=== PATIENT | female | born 1995 | race Caucasian/White ===

== ENCOUNTER 2023-01-31 18:22 | Emergency (ER) | payer BC ==
--- OUTSIDE RECORDS SUMMARY | 2023-01-31 18:25 | XMS REPORT | Continuity of Care Document ---
:1995 Author Organization [facility] t Address [address] [facility] [address] [place] [address] Care Team Providers Name Role Phone Pcp, Patient Does Not Have A Primary Care Physician [id number] YAIMA PRUITT Attending Clinician Unavailable Yaima Pruitt MD Attending Clinician Payers Payer Name Policy Type Policy Number Effective Date Expiration Date S kay [facility] BCBS OF [id number] 2022 00:00:00 [place] Problems This patient has no known problems. Allergies, Adverse Reactions, Alerts Allergy Allergy Status Severity Reaction(s) Onset Inactive Treating Comm ents Source Name Type Date Date Clinician NO KNOWN Drug Active Univers ALLERGIE Class ity of S [facility] Social History Social Habit Start Date Stop Date Quantity Comments Source Exposure to 2023-01-21 2023-01-31 Not sure [facility]-CoV-2 00:00:00 08:47:00 [facility] (event) Duck Tobacco use and 2023-01-31 2023-01-31 Smokeless tobacco Un iversity of exposure 00:00:00 00:00:00 non-user [facility] Alcohol intake 2023-01-31 2023-01-31 Current drinker of Un iversity of 00:00:00 00:00:00 alcohol (finding) [facility] Alcohol Comment 2023-01-31 2023-01-31 occasionally Univers ity of 00:00:00 00:00:00 [facility] Sex Assigned At [birth year] Universit y of 00:00:00 00:00:00 [facility] Smoking Status Start Date Stop Date Source Never smoked tobacco [facility] Medications This patient has no known medications. Vital Signs Vital Name Observation Time Observation Value Comments Source Systolic blood 2023-01-31 13:55:00 117 mm[Hg] Univer sity of pressure [facility] Diastolic blood 2023-01-31 13:55:00 79 mm[Hg] [facility] 2023-01-31 13:55:00 73 /min [facility] Body temperature 2023-01-31 13:55:00 36.67 [facility] 2023-01-31 13:55:00 16 /min [facility] Body height 2023-01-31 13:55:00 162.6 cm [facility] Body weight 2023-01-31 13:55:00 67.132 kg [facility] BMI 2023-01-31 13:55:00 25.40 kg/m2 [facility] Procedures This patient has no known procedures. Encounters Start End Encounter Admission Attending Care Care Encounter Source Date/Time Date/Time Type Type Clinicians Facility Department ID 2023-05-02 2023-05-[address] [facility] [id number] [facility] 09:30:00 09:30:00 YAIMA ropershu [facility] 2023-01-31 2023-01-[address] [facility] [id number] [facility] 09:00:00 09:26:11 YAIMA melgar [facility] 2023-01-31 2023-01-31 Office [facility] [id number] [facility] 09:00:00 09:26:11 Visit Yaima OWEN 350.1.13.10 i ty of WOMEN[facility]S 4.2.7.2.686 [facility] [id number] [address] Results This patient has no known results.
--- NOTE | 2023-01-31 19:09 | RAD REPORT ---
EXAM DESCRIPTION: Abhinav Single View01/31/2023 6:49 pm CLINICAL HISTORY: cough COMPARISON: none FINDINGS: The lungs appear clear of acute infiltrate. The heart is normal size IMPRESSION: No acute abnormalities displayed
[2023-01-31 19:38] LABS: Absolute Lymphocytes (CBC) 2.7 K/uL (0.7-4.9); Hematocrit 41.6 % (36.0-45.0); Lymphocytes % 27.5 % (15.3-44.8); MCV 90.4 fL (80-100); MPV 7.6 fL (7.6-11.3)
[2023-01-31 20:01] LABS: BUN Blood Urea Nitrogen 14 mg/dL (7-18); Bicarbonate 27 mEq/L (21-32); Glomerular Filtration Rate 99 ml/min (=/>90); Glucose Level 93 mg/dL (74-106); Potassium 3.7 mEq/L (3.5-5.1); Sodium Level 135 mEq/L (136-145)
--- NOTE | 2023-01-31 20:05 | ER ---
Nurse's Notes [facility] Name: Haven Velázquez Age: 27 yrs Sex: Female : 1995 Arrival Date: 01/31/2023 Time: 18:22 Bed 12 Private MD: Diagnosis: Cough Presentation: 01/31 18:24 Chief complaint: Patient states: cough x 5 weeks ago with chest pain for approximately aa5 1 week. Pt reports chest pain with movement and inspiration. Coronavirus screen: cough unrelated to allergies. Ebola Screen: Patient denies travel to an Ebola-affected area in the 21 days before illness onset. Initial Sepsis Screen: Does the patient meet any 2 criteria? No. Patient's initial sepsis screen is negative. Does the patient have a suspected source of infection? No. Patient's initial sepsis screen is negative. Risk Assessment: Do you want to hurt yourself or someone else? Patient reports no desire to harm self or others. Onset of symptoms was December 2022. 18:24 Acuity: LUPE 3 aa5 18:24 Method Of Arrival: Ambulatory aa5 Triage Assessment: 20:18 General: Appears in no apparent distress. Behavior is calm, cooperative. Pain: kl Complains of pain in head. Cardiovascular: No deficits noted. 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 - Social history:: Smoking status: Patient denies any tobacco usage or history of. Screenin:18 [facility] ED Fall Risk Assessment (Adult) History of falling in the last 3 months, kl including since admission Yes- single mechanical fall (1 pt) Confusion or Disorientation No (0 pts) Intoxicated or Sedated No (0 pts) Impaired Gait No (0 pts) Mobility Assist Device Used No (0 pt) Altered Elimination No (0 pt) Score/Fall Risk Level 0 - 2 = Low Risk Oriented to surroundings, Maintained a safe environment. Abuse screen: Denies threats or abuse. Nutritional screening: No deficits noted. Tuberculosis screening: No symptoms or risk factors identified. Assessment: 20:17 Reassessment: Patient appears in no apparent distress at this time. Neuro: No deficits kl noted. Level of Consciousness is awake, alert, obeys commands, Oriented to person, place, time, situation, Moves all extremities. Full function Gait is steady, Speech is normal, Facial symmetry appears normal. Vital Signs: 18:24 BP 106 / 77; Pulse 79; Resp 16 S; Temp 98.2(O); Pulse Ox 100% on R/A; aa5 ED Course: 18:23 Patient arrived in ED. 4 18:23 Shanti Park is Attending Physician. sk4 18:24 Arm band placed on. aa5 18:25 Triage completed. aa5 18:51 XRAY Chest (1 view) In Process Unspecified. EDMS 19:30 Basic Metabolic Panel Sent. bc6 19:30 CBC with Diff Sent. bc6 19:30 D-Dimer Sent. bc6 19:30 Troponin HS Sent. 6 19:30 Initial lab(s) drawn, by me, sent to lab. EKG done, by ED staff, reviewed by Shanti Park. Inserted saline lock: 20 gauge in right antecubital area, using aseptic technique. 20:18 Patient has correct armband on for positive identification. kl 20:19 No provider procedures requiring assistance completed. IV discontinued, intact, kl bleeding controlled, No redness/swelling at site. Pressure dressing applied. Administered Medications: No medications were administered Medication: 20:18 VIS not applicable for this client. kl Outcome: 20:04 Discharge ordered by . [facility] 20:18 Discharged to home ambulatory. kl 20:18 Condition: stable 20:18 Discharge instructions given to patient, Instructed on discharge instructions, follow up and referral plans. Demonstrated understanding of instructions, follow-up care. 20:19 Patient left the ED. kl Signatures: Dispatcher [employer] Joanne Velasquez RN RN Pretty Araujo RN RN Sahnti [facility] Ramya Bowie [facility]
--- NOTE | 2023-01-31 20:06 | EDPHYS ---
Physician Documentation [facility] Name: Haven Velázquez Age: 27 yrs Sex: Female : 1995 Arrival Date: 01/31/2023 Time: 18:22 Bed 12 Private MD: ED Physician Shanti Park HPI: 01/31 18:47 This 27 yrs old Female presents to ER via Ambulatory with complaints of Chest Pain, sk4 Cough. 18:47 cough x 4-5 weeks. pain in right ribs worse over past one week. cough mostly dry but sk4 occ mucous. no leg pain/swelling. no fever. no recent immob. no ocp use. no tobacco. no lifting/trauma. has had fractured ribs before, thinks scar tissue flared up from so much coughing. pain worse with deep breath/cough.. 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 - Social history:: Smoking status: Patient denies any tobacco usage or history of. ROS: 18:47 Respiratory: Positive for cough. sk4 20:05 Constitutional: Negative for fever, chills, and weight loss. sk4 Exam: 18:47 Constitutional: This is a well developed, well nourished patient who is awake, alert, sk4 and in no acute distress. Chest/axilla: Normal chest wall appearance and motion. Nontender with no deformity. No lesions are appreciated. Cardiovascular: Regular rate and rhythm with a normal S1 and S2. No gallops, murmurs, or rubs. Normal PMI, no JVD. No pulse deficits. Respiratory: Lungs have equal breath sounds bilaterally, clear to auscultation and percussion. Abdomen/GI: Soft, non-tendert. Skin: Warm, dry with normal turgor. 20:02 ECG was reviewed by the Attending Physician. NSR, no ST/T changes sk4 20:15 Chest/axilla: Normal chest wall appearance and motion. Nontender with no deformity. sk4 No lesions are appreciated. Cardiovascular: No pulse deficits. regular rate. Respiratory: No distress. Equal chest rise. Back: No spinal tenderness. No costovertebral tenderness. Full range of motion. Skin: Warm, dry with normal turgor. Normal color with no rashes, no lesions, and no evidence of cellulitis. MS/ Extremity: no calf tenderness. full rom. no swelling. Neuro: Awake and alert, GCS 15, oriented to person, place, time, and situation. Vital Signs: 18:24 BP 106 / 77; Pulse 79; Resp 16 S; Temp 98.2(O); Pulse Ox 100% on R/A; aa5 MDM: 18:47 Differential diagnosis: abnormal EKG, costochondritis, pleurisy, pneumonia, sk4 pneumothorax, pulmonary embolus. Data reviewed: vital signs, nurses notes, lab test result(s), EKG, radiologic studies. 20:02 Independent interpretation of the following test(s) in the Emergency Department EKG: [facility] See my EKG interpretation above. ED course: EKG, XR, lab noted. resting comfortably. given duration of cough will rx antibiotics and cough medication. AFVSS. Understands need to followup and potential for other acute undiagnosed condtiion still exists despite wokrup in the ED. Further tests may be necessary. . 20:04 Patient medically screened. [facility] 20:15 Refusal of service: The patient/guardian displays adequate decision making capability [facility] and despite a detailed discussion of alternatives, benefits, risks, and consequences refuses: additional lab tests. ekg normal. xray normal. ddimer neg. these were pt's biggest concerns. young, no cardiac risk factors, want sto leave. understands acute pathology may yet exist and inability to diagnose without labs . 01/31 18:24 Order name: Basic Metabolic Panel [facility] 01/31 18:24 Order name: CBC with Diff; Complete Time: 19:[address] [facility] 01/31 18:24 Order name: D-Dimer; Complete Time: 19:[address] [facility] 01/31 18:24 Order name: Troponin HS [facility] 01/31 18:24 Order name: HCG-Quantitative [facility] 01/31 18:24 Order name: XRAY Chest (1 view); Complete Time: 19:[address] [facility] 01/31 18:24 Order name: EKG; Complete Time: 18:[address] [facility] 01/31 18:24 Order name: Cardiac monitoring; Complete Time: 19:[address] [facility] 01/31 18:24 Order name: EKG - Nurse/Tech; Complete Time: 19:30 sk4 01/31 18:24 Order name: IV Saline Lock; Complete Time: 19:30 sk4 01/31 18:24 Order name: Labs collected and sent; Complete Time: 19:30 sk4 Administered Medications: No medications were administered Disposition Summary: 01/31/23 20:04 Discharge Ordered Location: Home sk4 Problem: new sk4 Symptoms: are unchanged sk4 Condition: Stable sk4 Diagnosis - Cough sk4 Discharge Instructions: - Discharge Summary Sheet sk4 - Cough, Adult sk4 Forms: - Medication Reconciliation Form sk4 - Thank You Letter sk4 - Antibiotic Education sk4 - Prescription Opioid Use sk4 Prescriptions: - Tessalon Perles 100 mg Oral Capsule - take 1 capsule by ORAL route every 8 hours As needed; 15 capsule; Refills: 0, sk4 Product Selection Permitted - Zithromax Z-Sumit 250 mg Oral Tablet - take 1 tablet by ORAL route as directed for 5 days Day 1 - take two (2) tablets sk4 one time. Day 2, 3, 4 , 5 take one (1) tablet once daily.; 6 tablet; Refills: 0, Product Selection Permitted Signatures: Dispatcher [employer] Joanne Velasquez RN RN Pretty Araujo RN RN aa5 Shanti Park 4
[2023-01-31 20:19] LABS: HCG, Quantitative < 1 mIU/mL (1-3); Troponin High Sensitivity < 3.0 pg/mL (<58.9)
[2023-01-31 20:44] VITALS: BP 106/77; TEMP 98.2; O2SAT 100
== END 2023-01-31 20:19 | disposition home or self-care (01) ==
LOC: ER 18:22
DX: R05.9 Cough, unspecified (principal); R07.9 Chest pain, unspecified
CPT/HCPCS: 36415; 71045; 80048; 84484; 84702; 85025; 85379; 99284

== ENCOUNTER → 2023-11-24 | Emergency (ER) | payer BC, OTHER ==
[~2023-11-24] MED LIST: HYDROCODONE/APAP 10/325 TAB ONE; dexAMETHasone 10 MG/ML VIAL ONE
--- OUTSIDE RECORDS SUMMARY | 2023-11-24 15:03 | XMS REPORT | Continuity of Care Document ---
Author Name Unknown Address [address] [facility] [address] [place] [address] [facility] thconnect Address [address] [facility] [place] [address] Care Team Providers Care Manager Scientific Name Role Phone Pcp, Patient Does Not Have A Primary Care Physic ángela YAIMA PRUITT Attending Clinician Unavailable Doctor Unassigned, [place] Attending Clinician U Yaima Alexander MD Attending Clinician [phone] Payers Payer Name Policy Type Policy Number Effective Date Expirati on Date Source [facility] [id number] 2022 00:00:00 Allergies, Adverse Reactions, Alerts Allergy Name Allergy Type Status Severity Reaction(s) Onset Date Inactive Date Treating Clinician Comments Source NO KNOWN ALLERGIE S Drug Class Active [facility] Social History Social Habit Start Date Stop Date Quantity Comments Source Gender identity [facility] Sexual orientation [facility] Alcohol intake 2023-05-02 00:00:00 2023-05-02 00:00:00 Current drinker of alcohol (finding) [facility] History of Social function 2023-05-02 00:00:00 2023-05-02 00:00:00 [facility] Exposure to SARS-CoV-2 (event) 2023-01-21 00:00:00 2023-01-31 08:47:00 Not sure [facility] Tobacco use and exposure 2023-01-31 00:00:00 2023-01-31 00:00:00 Smokeless tobacco non-user [facility] Alcohol Comment 2023-01-31 00:00:00 2023-01-31 00:00:00 occasionally [facility] Sex Assigned At 1995 00:00:00 1995 00:00:00 [facility] Smoking Status Start Date Stop Date Source Never smoked tobacco [facility] Medications Ordered Medication Name Filled Medication Name Start Date Stop Date Current Medication? Ordering Clinician Indication Dosage Frequency Signature (SIG) Comments Components Source metroNIDAZO LE (FLAGYL) 500 mg tablet 2022-0 8-04 00:00: 00 Yes [id number] 500mg Take 1 tablet by mouth every 12 (twelve) hours. [facility] metroNIDAZO LE (FLAGYL) 500 mg tablet 2022-0 8-04 00:00: 00 Yes [id number] 500mg Take 1 tablet by mouth every 12 (twelve) hours. [facility] metroNIDAZO LE (FLAGYL) 500 mg tablet 2022-0 8-04 00:00: 00 Yes [id number] 500mg Take 1 tablet by mouth every 12 (twelve) hours. [facility] metroNIDAZO LE (FLAGYL) 500 mg tablet 2022-0 8-04 00:00: 00 Yes [id number] 500mg Take 1 tablet by mouth every 12 (twelve) hours. [facility] metroNIDAZO LE (FLAGYL) 500 mg tablet 2022-0 8-04 00:00: 00 Yes [id number] 500mg Take 1 tablet by mouth every 12 (twelve) hours. [facility] metroNIDAZO LE (FLAGYL) 500 mg tablet 2022-0 8-04 00:00: 00 Yes [id number] 500mg Take 1 tablet by mouth every 12 (twelve) hours. [facility] Vital Signs Vital Name Observation Time Observation Value Comments Rosanne villanueva Systolic blood pressure 2023-05-02 14:44:00 115 mm[Hg] [facility] Diastolic blood pressure 2023-05-02 14:44:00 77 mm[Hg] [facility] Heart rate 2023-05-02 14:44:00 76 /min [facility] Body temperature 2023-05-02 14:44:00 36.67 Linda [facility] Respiratory rate 2023-05-02 14:44:00 18 /min [facility] Body height 2023-05-02 14:44:00 162.6 cm [facility] Body weight 2023-05-02 14:44:00 71.759 kg [facility] BMI 2023-05-02 14:44:00 27.15 kg/m2 [facility] Systolic blood pressure 2023-01-31 13:55:00 117 mm[Hg] [facility] Diastolic blood pressure 2023-01-31 13:55:00 79 mm[Hg] [facility] Heart rate 2023-01-31 13:55:00 73 /min [facility] Body temperature 2023-01-31 13:55:00 36.67 Linda [facility] Respiratory rate 2023-01-31 13:55:00 16 /min [facility] Body height 2023-01-31 13:55:00 162.6 cm [facility] Body weight 2023-01-31 13:55:00 67.132 kg [facility] BMI 2023-01-31 13:55:00 25.40 kg/m2 [facility] Procedures Procedure Date / Time Performed Performing Clinician Source EXTERNAL PROVIDER RECORDS 2023-05-24 05:01:00 Doctor Unassigned, [place] [facility] GALV ONLY - VAGINAL PATHOGENS BY NUCLEIC ACID TESTING 2023-05-02 16:03:00 Yaima Pruitt [facility] GC & CHLAMYDIA AMPLIFIED ASSAY 2023-05-02 16:01:00 Yaima Pruitt [facility] TRICHOMONAS AMPLIFIED ASSAY 2023-05-02 16:01:00 Yaima Pruitt [facility] PAP SMEAR-LIQUID BASED-CP 2023-05-02 16:01:00 Yaima Pruitt [facility] Encounters Start Date/Time End Date/Time Encounter Type Admission Type Attending Clinicians Care Facility Care Department Encounter ID Source 2024-05-07 09:30:00 2024-05-07 09:30:00 [id number] 2023-05-24 00:00:00 2023-05-24 00:00:00 Orders Only Doctor Unassigned, [place] [facility] [id number] [id number] [id number] [facility] 2023-05-09 00:00:00 2023-05-09 00:00:00 Telephone AdumYaima [facility] [id number] 350.1.13.10 [id number] [id number] [facility] 2023-05-02 09:30:00 2023-05-02 10:16:46 Office Visit A[facility] [id number] 350.1.13.10 4.2.7.2.686 [id number] [facility] 2023-05-02 09:30:00 2023-05-02 10:16:46 Outpatient R [facility] [id number] [facility] 2023-01-31 09:00:00 2023-01-31 09:26:11 Office Visit [facility]on [facility] [id number] 350.1.13.10 4.2.7.2.686 [id number] [facility] 2023-01-31 09:00:00 2023-01-31 09:26:11 Outpatient R [facility] [id number] [facility] Notes Date/Time Note Provider Source 2023-05-23 08:30:13 ojDawpZGgyRmIiGMa6Kx ctFaSIwstBvFT 0ZLHEu1Fvx4brYLf/x5psoQ+lBhwE2l96 23-05-23T08:30:13 Pt will call back to schedule appointment. 90806-1Nwgzczmjc encounter PlcoGS5921-66-05D37:30:23Telephon e encounter NoteTXT1.2.840.754961.1.13.104.2. 7.2.263646|[id number] for patient [id number] D [address] 416WEHKPGKXRPFVJIBENCGZVO7038-96- 23T08:30:231.2.840.347997.1.72.3. 15|1.2.840.910598.1.13.104.2.7.2. [id number] [facility] 2023-05-22 11:27:48 ET80Fd54cT/uX4Z8vX1E b34uh4J0TDXIj qTFIT1sLP08RoOy2194WK4SQwQDFVNL11 23-05-22T11:27:48 Called pt no answer left voicemail. 56572-1Vqcdthott encounter QudiQK4954-13-23T78:00:55Telephon e encounter NoteTXT1.2.840.024099.1.13.104.2. 7.2.538511|[id number] for patient oivl40611-1OatfTS592120040Zzksasd D [address] 421HASWXOMWGMVYBUAHXSSHSP4057-20- 23T08:00:551.2.840.084938.1.72.3. 15|1.2.840.365000.1.13.104.2.7.2. [id number] Aylin [facility] 2023-05-19 19:04:51 P+iCqnQJmC/xz416FHjp ERyxSpaJNvPy6 majjcAMmrTBpcuv4gKL7/o6myizxaJf24 23-05-199:04:51 Please notify that records show that her IUD was placed in 10/08/2017, so she may schedule an appointment for removal and reinsertion of her Mirena IUD. Please assist [place] [address]-6Ajojmddyy encounter AibbOA4320-76-21I34:07:02Telephon e encounter NoteTXT1.2.840.238787.1.13.104.2. 7.2.662880|[id number] for patient uoww99701-6XggsLUMJDPAMEN[address] 442KJUGUYHGTZXSFLJRLQHIQV4727-68- 19T19:07:021.2.840.106869.1.72.3. 15|1.2.840.430511.1.13.104.2.7.2. [id number] [facility] 2023-05-09 14:40:02 bGSDVJGKbbz/azhp9oFA rKGIpKscl1nSq wrjY3wyYoj+Vl1MtzfARn3nZ6WY114/20 23-05-094:40:02 Medical records received from [place] placed on provider desk for review and signature. 31589-6Sknpxqadt encounter RnvlLV3058-64-13A63:41:03Telephon e encounter NoteTXT1.2.840.603127.1.13.104.2. 7.2.106653|[id number] for patient [id number] D [address] 854NPLXXNCEJXSQCLRDPTDKPF4794-09- 09T14:41:031.2.840.195903.1.72.3. 15|1.2.840.769552.1.13.104.2.7.2. [id number] [facility] [facility] 2023-05-02 09:30:00 +fQZs8qAb8YfXuTkYH63 ljAFTRxbRmq8q MrsVOnBlObvHayBAFt8S0HTzUHoHuGh11 23-05-02T09:30:00 Vaginal swab shows a bacterial vaginosis infection. Antibiotic therapy needed, pelase send flagyl 500 mg BID for 5 days.Vaginal testing for sexually transmitted infections was negative. 33912-4Merumkqs ekuyPU6642-36-87E81:09:19Progress noteTXT1.2.840.489552.1.13.104.2. 7.2.800076|[id number] for patient izsn08894-0BfuuNQFMIUFPTT[address] 656LWPWGPGMOPOSVCTCDEADVL2359-15- 04T08:09:191.2.840.469589.1.72.3. 15|1.2.840.407215.1.13.104.2.7.2. [id number] [facility] 2023-05-02 09:30:00 1Hl4HWnNyx6Eyhi8g1/N R3w9bWQWYmR65 xSF3O+T58KjzaD4aRHDkyA46O+rzg/I20 23-05-02T09:30:00 Addended by: ANGELIA MATHUR on: 05/04/2023 09:21 AM Modules accepted: Orders 48699-4Kazxqqcy JflvdrceAO1648-41-56M84:21:29Adde ndum DocumentTXT1.2.840.428381.1.13.10 4.2.7.2.392257|[id number] [facility] tcsn81442-0JlacGCCITSYCTU[address] HrdgYqebvafyrIlknfrnseWBST4704613 343JFFCSPYTBHTFYMQYYIVTBI6777-26- 04T09:21:291.2.840.149528.1.72.3. 15|1.2.840.983920.1.13.104.2.7.2. [id number] [facility]"
--- NOTE | 2023-11-24 16:34 | RAD REPORT ---
EXAM DESCRIPTION: RAD - Lumbar Spine 3 Views - 11/24/2023 3:33 pm CLINICAL HISTORY: PAIN COMPARISON: No comparisons TECHNIQUE: Lumbar spine, 3 views. FINDINGS: Lumbar vertebral bodies are normal in height and alignment. No fracture or acute bony proc ess seen. No disc space narrowing. No other significant findings. IUD in place. IMPRESSION: Negative Lumbar Spine examination.
--- NOTE | 2023-11-24 16:40 | EDPHYS ---
Physician Documentation [facility] Name: Haven Velázquez Age: 28 yrs Sex: Female : 1995 Arrival Date: 11/24/2023 Time: 15:01 Bed 13 Private MD: ED Physician Richard Rojas HPI: 11/24 15:13 This 28 yrs old Female presents to ER via Ambulatory with complaints of Back Pain. jh7 15:13 The patient presents with pain that is chronic, with no known mechanism of injury. The jh7 symptoms are located in the low back. Onset: The symptoms/episode began/occurred 2 month(s) ago. The pain does not radiate. Associated signs and symptoms: The patient has no apparent associated signs or symptoms. 28-year-old female presents to the ER complaining of lower back pain for the past 2 months. The patient states that she injured her back 2 months ago when attempting to break a fall, but has not had any imaging done yet. Reports that she has had 2 Toradol injections within the past 2 days with no relief. No other symptoms at this time.. Historical: - Allergies: 15:13 No Known Allergies; cm10 - PMHx: 15:13 None; cm10 - Immunization history:: Adult Immunizations up to date. - Social history:: Smoking status: Patient denies any tobacco usage or history of. ROS: 15:13 Constitutional: Negative for fever, chills, and weight loss, Eyes: Negative for injury, jh7 pain, redness, and discharge, Neck: Negative for injury, pain, and swelling, Cardiovascular: Negative for chest pain, palpitations, and edema, Respiratory: Negative for shortness of breath, cough, wheezing, and pleuritic chest pain, Abdomen/GI: Negative for abdominal pain, nausea, vomiting, diarrhea, and constipation, MS/Extremity: Negative for injury and deformity, Skin: Negative for injury, rash, and discoloration, Neuro: Negative for headache, weakness, numbness, tingling, and seizure, 15:13 Back: Positive for pain with movement, 15:13 All other systems are negative, Exam: 15:13 Constitutional: This is a well developed, well nourished patient who is awake, alert, jh7 and in no acute distress. Head/Face: Normocephalic, atraumatic. Neck: Trachea midline, no thyromegaly or masses palpated, and no cervical lymphadenopathy. Supple, full range of motion without nuchal rigidity, or vertebral point tenderness. No Meningismus. Cardiovascular: Regular rate and rhythm with a normal S1 and S2. No gallops, murmurs, or rubs. Normal PMI, no JVD. No pulse deficits. Respiratory: Lungs have equal breath sounds bilaterally, clear to auscultation and percussion. No rales, rhonchi or wheezes noted. No increased work of breathing, no retractions or nasal flaring. Abdomen/GI: Soft, non-tender, with normal bowel sounds. No distension or tympany. No guarding or rebound. No evidence of tenderness throughout. Skin: Warm, dry with normal turgor. Normal color with no rashes, no lesions, and no evidence of cellulitis. MS/ Extremity: Pulses equal, no cyanosis. Neurovascular intact. Full, normal range of motion. Neuro: Awake and alert, GCS 15, oriented to person, place, time, and situation. Cranial nerves II-XII grossly intact. Motor strength 5/5 in all extremities. Sensory grossly intact. Normal gait. 15:13 Back: pain, that is moderate, ROM is painful, with all movement, normal spinal alignment noted, CVA tenderness, is absent, muscle spasm, is not present, Vital Signs: 15:12 BP 117 / 81; Pulse 79; Resp 16; Temp 97.5(TE); Pulse Ox 98% on R/A; Weight 70.31 kg cm10 (R); Height 5 ft. 4 in. ; Pain 5/10; 15:12 Body Mass Index 26.61 (70.31 kg, 162.56 cm) cm10 15:12 Pain Scale: Adult cm10 MDM: 15:09 Patient medically screened. [facility] 16:40 Differential diagnosis: chronic back pain, Ligament Injury Osteoarthritis ruptured [facility] disc, sprain. Data reviewed: vital signs, nurses notes, radiologic studies, plain films. I considered the following discharge prescriptions or medication management in the emergency department Medications were administered in the Emergency Department. See MAR. Independent interpretation of the following test(s) in the Emergency Department X-Ray: My interpretation is no acute findings. Counseling: I had a detailed discussion with the patient and/or guardian regarding the historical points, exam findings, and any diagnostic results supporting the discharge/admit diagnosis, the need for outpatient follow up, a orthopedic surgeon, to return to the emergency department if symptoms worsen or persist or if there are any questions or concerns that arise at home. Response to treatment: the patient's symptoms have mildly improved after treatment. 11/24 15:22 Order name: XRAY Lumbar Spine (3 Views); Complete Time: 16:37 [facility] Administered Medications: 15:56 Drug: [place]ck[place] PO 10 mg-325 mg 1 tabs PO once Route: PO; hb 16:44 Follow up: Response: No adverse reaction; Pain is decreased; RASS: Alert and Calm (0) kc6 15:57 Drug: Dexamethasone IM 10 mg IM once Route: IM; Site: right deltoid; hb 16:43 Follow up: Response: No adverse reaction 6 Disposition: 19:18 Co-signature as Attending Physician, Richard Rojas MD I agree with the assessment and kdr plan of care. Disposition Summary: 11/24/23 16:39 Discharge Ordered Notes: Location: Home [facility] Problem: chronic [facility] Symptoms: are unchanged [facility] Condition: Stable [facility] Diagnosis - Low back pain [facility] Followup: [facility] - With: Private Physician - When: 2 - 3 days - Reason: Recheck today's complaints Discharge Instructions: - Discharge Summary Sheet [facility] - Chronic Back Pain [facility] Forms: - Work release form hb - Medication Reconciliation Form [facility] - Thank You Letter [facility] - Patient Portal Instructions [facility] - Leadership Thank You Letter [facility] Prescriptions: - Naprosyn 500 mg Oral Tablet - take 1 tablet ORAL route 2 times per day take with food; 30 tablet; Refills: 0, [facility] Product Selection Permitted - Zanaflex 4 mg Oral Tablet - take 1 tablet ORAL route every 8 hours As needed; 20 tablet; Refills: 0, [facility] Product Selection Permitted Signatures: Dispatcher [employer] Richard Almonte MD MD [facility] Elizabeth Ambriz RN RN Yin Thomas FNP [place] [id number] Sandra Hunt RN RN cm10 Rosalind Calabrese RN kc6
--- NOTE | 2023-11-24 16:40 | ER ---
Nurse's Notes [facility] Name: Haven Velázquez Age: 28 yrs Sex: Female : 1995 Arrival Date: 11/24/2023 Time: 15:01 Bed 13 Private MD: Diagnosis: Low back pain Presentation: 11/24 15:12 Chief complaint: Patient states: Low back pain X2 months. Pt reports having Toradol cm10 30mg IM the last 2 days with no relief. Coronavirus screen: Vaccine status: Patient reports receiving the 2nd dose of the covid vaccine. Client denies travel out of the [place] in the last 14 days. Ebola Screen: Patient denies travel to an Ebola-affected area in the 21 days before illness onset. No symptoms or risks identified at this time. Initial Sepsis Screen: Does the patient meet any 2 criteria? No. Patient's initial sepsis screen is negative. Does the patient have a suspected source of infection? No. Patient's initial sepsis screen is negative. Risk Assessment: Do you want to hurt yourself or someone else? Patient reports no desire to harm self or others. Onset of symptoms was November 24, 2023. 15:12 Method Of Arrival: Ambulatory cm10 15:12 Acuity: LUPE 4 cm10 Historical: - Allergies: 15:13 No Known Allergies; cm10 - PMHx: 15:13 None; cm10 - Immunization history:: Adult Immunizations up to date. - Social history:: Smoking status: Patient denies any tobacco usage or history of. Screenin:57 [facility] ED Fall Risk Assessment (Adult) Score/Fall Risk Level 0 - 2 = Low Risk hb Oriented to surroundings, Maintained a safe environment, Educated pt \T\ family on fall prevention, incl call for assistance when getting out of bed. Abuse screen: Denies threats or abuse. Denies injuries from another. Nutritional screening: No deficits noted. Tuberculosis screening: No symptoms or risk factors identified. Assessment: 15:57 General: Appears in no apparent distress. Behavior is calm, cooperative. Pain: Pain hb currently is 5 out of 10 on a pain scale. Neuro: Level of Consciousness is awake, alert, obeys commands, Oriented to person, place, time, situation. Cardiovascular: Patient's skin is warm and dry. Respiratory: Respiratory effort is even, unlabored, Respiratory pattern is regular, symmetrical. GI: No signs and/or symptoms were reported involving the gastrointestinal system. : No signs and/or symptoms were reported regarding the genitourinary system. EENT: No signs and/or symptoms were reported regarding the EENT system. Derm: Skin is pink, warm \T\ dry. Musculoskeletal: Reports back pain. 17:01 Reassessment: Patient appears in no apparent distress at this time. Patient and/or hb family updated on plan of care and expected duration. Pain level reassessed. Patient is alert, oriented x 3, equal unlabored respirations, skin warm/dry/pink. Vital Signs: 15:12 BP 117 / 81; Pulse 79; Resp 16; Temp 97.5(TE); Pulse Ox 98% on R/A; Weight 70.31 kg cm10 (R); Height 5 ft. 4 in. ; Pain 5/10; 15:12 Body Mass Index 26.61 (70.31 kg, 162.56 cm) cm10 15:12 Pain Scale: Adult cm10 ED Course: 15:03 Patient arrived in ED. ra3 15:09 Yin Thomas FNP [facility]. jh7 15:09 Richard Rojas MD is Attending Physician. 7 15:13 Triage completed. cm10 15:13 Arm band placed on Patient placed in an exam room, on a stretcher. cm10 15:35 XRAY Lumbar Spine (3 Views) In Process Unspecified. EDMS 15:46 Elizabeth Ambriz, RN is Primary Nurse. hb 15:57 Patient has correct armband on for positive identification. Provided Education on: hb medications. 15:57 No provider procedures requiring assistance completed. Patient did not have IV access hb during this emergency room visit. Administered Medications: 15:56 Drug: [place] PO 10 mg-325 mg 1 tabs PO once Route: PO; hb 16:44 Follow up: Response: No adverse reaction; Pain is decreased; RASS: Alert and Calm (0) kc6 15:57 Drug: Dexamethasone IM 10 mg IM once Route: IM; Site: right deltoid; hb 16:43 Follow up: Response: No adverse reaction kc6 Medication: 15:57 VIS not applicable for this client. hb Outcome: 16:39 Discharge ordered by . [facility] 17:02 Discharged to home ambulatory, with significant other, hb 17:02 Condition: stable 17:02 Discharge instructions given to patient, Instructed on discharge instructions, follow up and referral plans. medication usage, Demonstrated understanding of instructions, follow-up care, medications, Prescriptions given X 2, 17:03 Patient left the ED. Signatures: Dispatcher [employer] EDMS Elizabeth Ambriz RN RN Yin Thomas, SCREWDOWN OPERATOR SCREWDOWN OPERATOR jh7 Rosalind Calabrese RN RN kc6 Sandra Hunt RN RN cm10 Sammi Espinosa 3
[2023-11-24 17:22] VITALS: BP 117/81; TEMP 97.5; O2SAT 98
== END ==
LOC: ER 15:01
DX: M54.50 Low back pain, unspecified (principal)
CPT/HCPCS: 72100; J1100; 96372; 99284

== ENCOUNTER 2024-03-01 18:32 | Emergency (ER) | payer OTHER ==
[2024-03-01] MEDS ORDERED: ONDANSETRON 4 MG/2 ML VIAL ONE (18:59)
[2024-03-01] MEDS ORDERED: dexAMETHasone 10 MG/ML VIAL ONE (19:00)
[2024-03-01] MEDS ORDERED: HYDROCOD 2.5mg-ACETAMIN 108mg/5mL Soln ONE (19:00)
[2024-03-01 19:21] LABS: Absolute Lymphocytes (CBC) 1.3 K/uL (0.7-4.9); Absolute Monocytes 0.7 K/uL (0.1-1.3); Absolute Neutrophil 6.5 K/uL (1.8-8.0); Basophils % 0.2 % (0-1.3); Eosinophils % 0.3 % (0-4.4); Hematocrit 35.8 % (36.0-45.0); Hemoglobin 12.6 g/dL (12.0-15.0); Lymphocytes % 15.3 % (15.3-44.8); MCHC 35.1 g/dL (32.0-36.0); MCV 88.5 fL (80-100); MPV 7.3 fL (7.6-11.3); Monocytes % 8.5 % (3.3-12.3); Neutrophils % 75.7 % (41.7-73.7); Platelets 225 thou/uL (152-406); RBC Red Blood Cell Count 4.05 M/uL (3.86-4.86); Red Cell Distribution Width 12.5 % (12.1-15.2)
[2024-03-01 19:39] LABS: Albumin 2.9 g/dL (3.4-5.0); Albumin/Globulin Ratio 0.7 (1.1-1.8); Anion Gap 7.4 mEq/L (5.0-15.0); Bilirubin Total 0.3 mg/dL (0.2-1.0); Globulin 4.3 g/dL (2.3-3.5); Potassium 3.4 mEq/L (3.5-5.1); Protein, Total 7.2 g/dL (6.4-8.2)
[2024-03-01 20:02] LABS: Monoscreen NEG (NEG)
--- NOTE | 2024-03-01 20:05 | RAD REPORT ---
EXAM DESCRIPTION: CT - Soft Tissue Neck W/Contr CLINICAL HISTORY: dysphagia;Sore throat COMPARISON: No comparisons TECHNIQUE All CT scans are performed using dose optimization technique as appropriate and may includ e automated exposure control or mA/KV adjustment according to patient size. FINDINGS: Tonsillar hypertrophy with striations consistent with phlegmon but no discrete abscess. En hancement of the mucosal pharyngeal surface consistent with pharyngitis. Enlarged cervical chain lymp h nodes bilaterally. For example, there is a right level 2 lymph node which measures 1.7 cm that is a lmost certainly reactive. The airway is widely patent. IMPRESSION: Pharyngitis and bilateral tonsillar phlegmon but no tonsillar or peritonsillar abscess. The airway is patent.
[2024-03-01] MEDS ORDERED: POTASSIUM 25 MEQ EFFERV TAB ONE (20:19)
[2024-03-01] MEDS ORDERED: CEFTRIAXONE 1000 MG/VIAL ONE (20:19)
[2024-03-01] MEDS ORDERED: CLINDAMYCIN 600MG/D5W 50 ML IV ONE (20:20)
--- NOTE | 2024-03-01 20:39 | ER ---
Nurse's Notes [facility] Name: Haven Velázquez Age: 28 yrs Sex: Female : 1995 Arrival Date: 03/01/2024 Time: 18:32 Bed 9 Private MD: Diagnosis: Acute tonsillitis, unspecified Presentation: 03/01 18:37 Chief complaint: EMS states: Patient was seen at urgent care and was placed on cm10 Amoxicillin for possible strep. Pt was swabbed and was placed on ABX due to throat being red. Pt states that she is still not feeling better after 2 days of ABX and is having trouble eating and drinking. Coronavirus screen: Client denies travel out of the [place] in the last 14 days. At this time, the client does not indicate any symptoms associated with coronavirus-19. Ebola Screen: Patient denies travel to an Ebola-affected area in the 21 days before illness onset. No symptoms or risks identified at this time. Initial Sepsis Screen: Does the patient meet any 2 criteria? No. Patient's initial sepsis screen is negative. Does the patient have a suspected source of infection? No. Patient's initial sepsis screen is negative. Risk Assessment: Do you want to hurt yourself or someone else? Patient reports no desire to harm self or others. Onset of symptoms was February 28, 2024. Care prior to arrival: Medication(s) given: Normal saline infusion, 700 IV initiated. 20 GA, in the right antecubital area, Glucose check: 91. 18:37 Method Of Arrival: EMS: [facility] 10 18:37 Acuity: LUPE 3 cm10 Triage Assessment: 18:39 General: Appears in no apparent distress. comfortable, Behavior is calm, cooperative. cm10 EENT: Reports pain when swallowing. 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 - Infectious Disease History:: Denies. - Social history:: Smoking status: unknown. Screenin:51 [facility] ED Fall Risk Assessment (Adult) History of falling in the last 3 months, mb9 including since admission No falls in past 3 months (0 pts) Confusion or Disorientation No (0 pts) Intoxicated or Sedated No (0 pts) Impaired Gait No (0 pts) Mobility Assist Device Used No (0 pt) Altered Elimination No (0 pt) Score/Fall Risk Level 0 - 2 = Low Risk Oriented to surroundings, Maintained a safe environment, Educated pt \T\ family on fall prevention, incl call for assistance when getting out of bed. Abuse screen: Denies threats or abuse. Nutritional screening: No deficits noted. Tuberculosis screening: No symptoms or risk factors identified. Assessment: 18:49 General: Appears uncomfortable, Behavior is cooperative. Pain: Complains of pain in mb9 throat Pain currently is 10 out of 10 on a pain scale. Quality of pain is described as throbbing, Pain began 2-3 days ago. Is continuous. Neuro: Salazar Agitation-Sedation Scale (RASS): 0 - Alert and Calm Level of Consciousness is awake, alert, obeys commands, Oriented to person, place, time, situation, Appropriate for age. Cardiovascular: Heart tones S1 S2 present Patient's skin is warm and dry. Respiratory: Airway is patent Respiratory effort is even, unlabored, Respiratory pattern is regular, symmetrical, Breath sounds are clear bilaterally. GI: Abdomen is round non-distended, Bowel sounds present X 4 quads. Abd is soft Abdomen is tender to palpation in right lower quadrant and left lower quadrant Reports diarrhea. : No signs and/or symptoms were reported regarding the genitourinary system. EENT: Throat is reddened. Derm: Skin is pink, warm \T\ dry. Musculoskeletal: Range of motion: intact in all extremities. 20:26 Reassessment: Patient appears in no apparent distress at this time. Patient and/or mb9 family updated on plan of care and expected duration. Pain level reassessed. Patient is alert, oriented x 3, equal unlabored respirations, skin warm/dry/pink. Patient states feeling better. Patient states symptoms have improved. Vital Signs: 18:37 BP 117 / 80; Pulse 93; Resp 18; Temp 97.7; Pulse Ox 99% on R/A; Pain 4/10; cm10 20:26 BP 120 / 78; Pulse 74; Resp 18; Pulse Ox 100% on R/A; mb9 18:37 Pain Scale: Adult cm10 ED Course: 18:36 Patient arrived in ED. cm10 18:39 Triage completed. cm10 18:39 Arm band placed on Patient placed in an exam room, on a stretcher. cm10 18:43 Long Morgan PA is PHCP. cp 18:43 Long Velez MD is Attending Physician. cp 18:49 Tomasa Mancini, MARIBEL is Primary Nurse. mb9 18:51 Bed in low position. Call light in reach. Side rails up X 1. Provided Education on: mb9 press call light if needing anything. Client placed on continuous cardiac and pulse oximetry monitoring. NIBP monitoring applied. Door closed. Noise minimized. Warm blanket given. 18:51 Maintain EMS IV. Dressing intact. Good blood return noted. Site clean \T\ dry. Gauge \T\ mb 9 site: 20g right AC. 18:52 No provider procedures requiring assistance completed. mb9 19:16 Initial lab(s) drawn, by me, sent to lab. Strep swab sent to lab. mb9 19:58 CT Soft Tissue Neck W/contr In Process Unspecified. EDMS 20:37 Gerhard Verdin MD is Attending Physician. cp 20:38 Jayshree Parikh MD is Referral Physician. cp 20:53 IV discontinued, intact, bleeding controlled, No redness/swelling at site. Pressure mb9 dressing applied. Administered Medications: 18:57 Drug: NS 0.9% IV 1000 ml IV at 1 bolus Per protocol; 1000 mL bolus Route: IV; Rate: 1 mb9 bolus; Site: right antecubital; 19:45 Follow up: Response: No adverse reaction; IV Status: Completed infusion mb9 19:16 Drug: Ondansetron IVP 4 mg IVP once; over 2 minutes Route: IVP; Site: right antecubital;mb9 19:44 Follow up: Response: No adverse reaction mb9 19:16 Drug: Decadron - Dexamethasone IVP 10 mg IVP once Route: IVP; Site: right antecubital; mb9 19:44 Follow up: Response: No adverse reaction mb9 19:16 Drug: Lortab PO Liquid 15 ml PO once Route: PO; mb9 19:44 Follow up: Response: No adverse reaction mb9 20:20 Drug: Rocephin IV 1 grams IV at calculated rate once; Given slow IV push per pharmacy mb9 instructions Route: IV; Rate: calculated rate; Site: right antecubital; 20:40 Follow up: Response: No adverse reaction; IV Status: Completed infusion mb9 20:25 Drug: Potassium PO Effervescent Tablet 25 mEq PO once; dissolve in 4 ounces of water or mb9 juice Route: PO; 20:40 Follow up: Response: No adverse reaction mb9 20:25 Drug: Clindamycin IVPB 600 mg IVPB once over 30 mins; (mix in 50 mL) Route: IVPB; mb9 Infused Over: 30 mins; Site: right antecubital; 20:40 Follow up: Response: No adverse reaction; IV Status: Completed infusion mb9 Medication: 18:51 VIS not applicable for this client. mb9 Outcome: 20:38 Discharge ordered by . raz 20:53 Discharged to home ambulatory, mb9 20:53 Condition: stable 20:53 Discharge instructions given to patient, Instructed on discharge instructions, follow up and referral plans. Demonstrated understanding of instructions, follow-up care, medications, Prescriptions given X 4, 20:53 Patient left the ED. mb9 Signatures: Dispatcher [employer] EDMS Long Morgan PA PA cp Breneman, Mary Beth RN RN mb9 Sandra Hunt RN RN cm10
--- NOTE | 2024-03-01 20:39 | EDPHYS ---
Physician Documentation [facility] Name: Haven Velázquez Age: 28 yrs Sex: Female : 1995 Arrival Date: 03/01/2024 Time: 18:32 Bed 9 Private MD: ED Physician Gerhard Verdin HPI: 03/01 19:00 This 28 yrs old Female presents to ER via EMS with complaints of Sore Throat. cp 19:00 The patient presents with sore throat, dysphagia, of both solids and liquids. The cp patient describes throat pain as constant. 19:00 Onset: The symptoms/episode began/occurred 2 day(s) ago. cp 19:00 Severity of symptoms: in the emergency department the symptoms are actually worse, cp moderately. Associated signs and symptoms: Pertinent positives: diarrhea, dysphagia, nausea, vomiting, Pertinent negatives cough, earache, fever, flu-like symptoms. 19:00 Patient reports she was prescribed Amoxicillin by urgent care and sore throat is cp worsening. Has been taking antibiotic for past 2 days. [employer] SKILLS: 18:52 LMP N/A - , Not mb9 Historical: - Allergies: 18:39 No Known Allergies; cm10 - Home Meds: 18:39 None [Active]; cm10 - PMHx: 18:39 None; cm10 - PSHx: 18:39 None; cm10 - Immunization history:: Adult Immunizations up to date. - Infectious Disease History:: Denies. - Social history:: Smoking status: unknown. ROS: 19:05 Constitutional: Positive for poor PO intake, Negative for body aches, chills, fever, cp 19:05 Eyes: Negative for injury, pain, redness, and discharge, cp 19:05 ENT: Positive for difficulty swallowing, sore throat, Negative for drainage from ear(s), ear pain, difficulty handling secretions, 19:05 Respiratory: Negative for cough, shortness of breath, wheezing, 19:05 Abdomen/GI: Positive for nausea, vomiting, and diarrhea, 19:05 Skin: Negative for rash, 19:05 Neuro: Negative for altered mental status, 19:05 All other systems are negative, Exam: 19:10 Constitutional: The patient appears in no acute distress, alert, awake, non-toxic, well cp developed, well nourished, uncomfortable, 19:10 Head/Face: Normocephalic, atraumatic. cp 19:10 Eyes: Periorbital structures: appear normal, Conjunctiva: normal, no exudate, no injection, Sclera: no appreciated abnormality, Lids and lashes: appear normal, bilaterally, 19:10 ENT: External ear(s): are unremarkable, Ear canal(s): are normal, clear, TM's: bulging, is not appreciated, bilaterally, dullness, bilaterally, erythema, is not appreciated, bilaterally, Nose: is normal, Mouth: Lips: moist, Oral mucosa: pink and intact, moist, Posterior pharynx: Airway: no evidence of obstruction, patent, Tonsils: bilaterally enlarged, with erythema, with exudate, 19:10 Neck: ROM/movement: Meningeal signs: are not present, nuchal rigidity, is not appreciated, Lymph nodes: lymphadenopathy is appreciated, anterior cervical nodes, 19:10 Chest/axilla: Inspection: normal, 19:10 Cardiovascular: Rate: normal, Rhythm: regular, 19:10 Respiratory: the patient does not display signs of respiratory distress, Respirations: normal, no use of accessory muscles, no retractions, labored breathing, is not present, Breath sounds: are clear throughout, no decreased breath sounds, no stridor, no wheezing, 19:10 Abdomen/GI: Inspection: abdomen appears normal, Palpation: soft, in all quadrants, mild abdominal tenderness, in the right lower quadrant, rebound tenderness, is not appreciated, involuntary guarding, is not appreciated, 19:10 Skin: no rash present. Vital Signs: 18:37 BP 117 / 80; Pulse 93; Resp 18; Temp 97.7; Pulse Ox 99% on R/A; Pain 4/10; cm10 20:26 BP 120 / 78; Pulse 74; Resp 18; Pulse Ox 100% on R/A; mb9 18:37 Pain Scale: Adult cm10 MDM: 18:43 Patient medically screened. cp 20:37 Data reviewed: vital signs, nurses notes, lab test result(s), radiologic studies, CT cp scan, and as a result, I will discharge patient. 20:37 Differential diagnosis: apthous stomatitis, group A strep tonsillitis, laryngitis, cp janine's angina, mononucleosis, peritonsillar abscess retropharyngeal abcess. I considered the following discharge prescriptions or medication management in the emergency department Medications were administered in the Emergency Department. See MAR. Counseling: I had a detailed discussion with the patient and/or guardian regarding the historical points, exam findings, and any diagnostic results supporting the discharge/admit diagnosis, lab results, radiology results, to return to the emergency department if symptoms worsen or persist or if there are any questions or concerns that arise at home. 03/01 18:56 Order name: CBC with Diff; Complete Time: 20:11 cp 03/01 20:11 Interpretation: Normal except: HCT 35.8; MPV 7.3; RILEY% 75.7. cp 03/01 18:56 Order name: CMP; Complete Time: 20:11 cp 03/01 20:11 Interpretation: Normal except: K 3.4. 03/01 18:56 Order name: Lactate w/ 2H reflex if indic.; Complete Time: 20:11 cp 03/01 18:56 Order name: [place] Screen Profile; Complete Time: 20:11 cp 03/01 18:56 Order name: Strep 03/01 19:38 Order name: Throat Culture EDTX 03/01 18:56 Order name: CT Soft Tissue Neck W/contr; Complete Time: 20:11 cp 03/01 18:56 Order name: Accucheck; Complete Time: 18:57 cp 03/01 18:56 Order name: Cardiac monitoring; Complete Time: 18:57 cp 03/01 18:56 Order name: IV Saline Lock - Large Bore; Complete Time: 18:57 cp 03/01 18:56 Order name: Labs collected and sent; Complete Time: 18:58 cp 03/01 18:56 Order name: O2 Per Protocol; Complete Time: 18:57 cp 03/01 18:56 Order name: O2 Sat Monitoring; Complete Time: 18:57 cp 03/01 18:56 Order name: Vital Signs; Complete Time: 18:57 cp 03/01 20:14 Order name: PO challenge; Complete Time: 20:14 cp Administered Medications: 18:57 Drug: NS 0.9% IV 1000 ml IV at 1 bolus Per protocol; 1000 mL bolus Route: IV; Rate: 1 mb9 bolus; Site: right antecubital; 19:45 Follow up: Response: No adverse reaction; IV Status: Completed infusion mb9 19:16 Drug: Ondansetron IVP 4 mg IVP once; over 2 minutes Route: IVP; Site: right antecubital;mb9 19:44 Follow up: Response: No adverse reaction mb9 19:16 Drug: Decadron - Dexamethasone IVP 10 mg IVP once Route: IVP; Site: right antecubital; mb9 19:44 Follow up: Response: No adverse reaction mb9 19:16 Drug: Lortab PO Liquid 15 ml PO once Route: PO; mb9 19:44 Follow up: Response: No adverse reaction mb9 20:20 Drug: Rocephin IV 1 grams IV at calculated rate once; Given slow IV push per pharmacy mb9 instructions Route: IV; Rate: calculated rate; Site: right antecubital; 20:40 Follow up: Response: No adverse reaction; IV Status: Completed infusion mb9 20:25 Drug: Potassium PO Effervescent Tablet 25 mEq PO once; dissolve in 4 ounces of water or mb9 juice Route: PO; 20:40 Follow up: Response: No adverse reaction mb9 20:25 Drug: Clindamycin IVPB 600 mg IVPB once over 30 mins; (mix in 50 mL) Route: IVPB; mb9 Infused Over: 30 mins; Site: right antecubital; 20:40 Follow up: Response: No adverse reaction; IV Status: Completed infusion mb9 Disposition Summary: 03/01/24 20:38 Discharge Ordered Notes: Location: Home cp Problem: new cp Symptoms: have improved cp Condition: Stable cp Diagnosis - Acute tonsillitis, unspecified cp Followup: cp - With: Jayshree Parikh MD - When: 2 - 3 days - Reason: Recheck today's complaints Discharge Instructions: - Discharge Summary Sheet cp - Tonsillitis cp Forms: - Medication Reconciliation Form cp - Antibiotic Education cp - Prescription Opioid Use cp - Patient Portal Instructions cp - Leadership Thank You Letter cp Prescriptions: - acetaminophen-codeine 300-30 mg Oral tablet - take 2 tablet ORAL route every 8-12 hours; 14 tablet; Refills: 0, Product cp Selection Permitted - Clindamycin HCl 300 mg Oral Capsule - take 1 capsule ORAL route every 6 hours for 10 days; 40 capsule; Refills: 0, cp Product Selection Permitted - Ibuprofen 600 mg Oral tablet - take 1 tablet ORAL route every 8 hours As needed take with food; 30 tablet; cp Refills: 0, Product Selection Permitted - Zofran 4 mg Oral Tablet - take 1 tablet ORAL route every 12 hours As needed; 20 tablet; Refills: 0, cp Product Selection Permitted Addendum: 03/05/2024 05:57 Co-signature as Attending Physician, Gerhard Verdin MD I agree with the assessment s p4 and plan of care. I reviewed the patient's care provided by the Advanced Practice Provider and agree with the diagnosis and treatment plan. Signatures: Dispatcher [employer] EDMS Long Morgan PA PA cp Breneman, Tomasa Hyde, RN RN mb9 Gerhard Verdin MD MD sp4 Sandra Hunt RN RN cm10 Corrections: (The following items were deleted from the chart) 03/01 18:57 18:57 CBC+H.LAB.BRZ ordered. EDMS EDMS 18:57 18:57 COMPREHENSIVE METABOLIC PANEL+C.LAB.BRZ ordered. EDMS EDMS 18:57 18:57 LACTATE+C.LAB.BRZ ordered. EDMS EDMS 18:57 18:57 Urinalysis+U.LAB.BRZ ordered. EDMS EDMS 18:57 18:57 MONO SCREEN PROFILE+I.LAB.BRZ ordered. EDMS EDMS 18:57 18:57 Group A Streptococcus Rapid Sc+BA.LAB.BRZ ordered. EDMS EDMS 18:57 18:57 Urinalysis W/Microscopic+U.LAB.BRZ ordered. EDMS EDMS 18:57 18:57 Test, Urine+UC.LAB.BRZ ordered. EDMS EDMS 18:57 18:57 Soft Tissue Neck W/Contr+CT.RAD.BRZ ordered. EDMS EDMS
[2024-03-01 21:24] VITALS: BP 120/78; TEMP 97.7; O2SAT 100
== END 2024-03-01 20:53 | disposition home or self-care (01) ==
LOC: ER 18:32
DX: J03.90 Acute tonsillitis, unspecified (principal); R11.2 Nausea with vomiting, unspecified; R19.7 Diarrhea, unspecified
CPT/HCPCS: 96365; 96361; 87070; 85025; 36415; 86308; 87081; 83605; 80053; 70491; 96375; 99284; Q9967; J1100; J2405; J0696

== ENCOUNTER 2025-02-09 14:51 | Emergency (ER) | payer OTHER ==
--- OUTSIDE RECORDS SUMMARY | 2025-02-09 14:54 | XMS REPORT | Continuity of Care Document ---
Author Name Unknown Address [address] [place] [address] [facility] Address [address] [place] [address] Care Team Providers Care Patient Scheduling Manager Name Role Phone PCP, PATIENT DOES NOT HAVE A Primary Care Physic ángela Unavailable DIANE PRUITT Attending Clinician Unavailable DIANE PRUITT Attending Clinician Unavailable Diane Pruitt MD Attending Clinician Lab, Ang - Db Attending Clinician Unavailable Doctor Unassigned, [place] Attending Clinician U navailable Payers Payer Name Policy Type Policy Number Effective Date Expirati on Date Source [facility] PPO/POS [id number] 2023 00:00:00 [facility] [id number] 2022 00:00:00 Allergies, Adverse Reactions, Alerts Allergy Name Allergy Type Status Severity Reaction(s) Onset Date Inactive Date Treating Clinician Comments Source NO KNOWN ALLERGIE S Drug Class Active [facility] Social History Social Habit Start Date Stop Date Quantity Comments Source Gender identity [facility] Alcoholic beverage intake 2024-11-18 00:00:00 2024-11-18 00:00:00 Current drinker of alcohol (finding) [facility] History of Social function 2024-10-29 00:00:00 2024-10-29 00:00:[address] [facility] Alcohol intake 2023-05-02 00:00:00 2023-05-02 00:00:00 Current drinker of alcohol (finding) [facility] Exposure to SARS-CoV-2 (event) 2023-01-21 00:00:00 2023-01-31 08:47:[address] [facility] Tobacco use and exposure 2023-01-31 00:00:00 2023-01-31 00:00:00 Smokeless tobacco non-user [facility] Alcohol Comment 2023-01-31 00:00:00 2023-01-31 00:00:[address] [facility] Sex assigned at 1995 00:00:00 1995 00:00:[address] [facility] Smoking Status Start Date Stop Date Source Never smoked tobacco [facility] Medications Ordered Medication Name Filled Medication Name Start Date Stop Date Current Medication? Ordering Clinician Indication Dosage Frequency Signature (SIG) Comments Components Source ibuprofen (MOTRIN IB) tablet 200 mg 11-18 16:45: 00 11-18 15:56 :00 No [id number] 200mg 200 mg, Oral, ONCE, 1 dose, On Sun11/18/24 at 1045, Routine [facility] levonorgest reL (MIRENA) IUD 1 Device 11-18 16:45: 00 11-18 15:51 :00 No [id number] 1{devic e} 1 Device, Intrauteri ne, ONCE, 1 dose, On Sun11/18/24 at 1045, Routine [facility] ibuprofen (MOTRIN) tablet 800 mg 11-18 16:30: 00 11-18 15:47 :51 No [id number] 800mg [facility] metroNIDAZO LE 500 mg tablet 10-30 00:00: 00 Yes [id number] 500mg Take 1 tablet by mouth every 12 (twelve) hours. [facility] SERTraline 100 mg tablet 10-29 09:09: 25 Yes 100mg Take 1 tablet by mouth in the morning. [facility] cyanocobala min, vitamin B-12, (VITAMIN B12 ORAL) 10-29 09:09: 25 Yes Take by mouth. [facility] metroNIDAZO LE (FLAGYL) 500 mg tablet 8-04 00:00: 00 10-29 00:00 :00 No [id number] 500mg Take 1 tablet by mouth every 12 (twelve) hours. [facility] Vital Signs Vital Name Observation Time Observation Value Comments Rosanne villanueva Systolic blood pressure 2024-11-18 15:21:00 102 mm[Hg] [facility] Diastolic blood pressure 2024-11-18 15:21:00 71 mm[Hg] [facility] Heart rate 2024-11-18 15:21:00 80 /min [facility] Respiratory rate 2024-11-18 15:21:00 18 /min [facility] Body height 2024-11-18 15:21:00 162.6 cm [facility] Body weight 2024-11-18 15:21:00 76.204 kg [facility] BMI 2024-11-18 15:21:00 28.84 kg/m2 [facility] Body weight 2024-10-29 15:07:00 76.204 kg [facility] BMI 2024-10-29 15:07:00 28.84 kg/m2 [facility] Systolic blood pressure 2024-10-29 15:07:00 113 mm[Hg] [facility] Diastolic blood pressure 2024-10-29 15:07:00 74 mm[Hg] [facility] Heart rate 2024-10-29 15:07:00 96 /min [facility] Respiratory rate 2024-10-29 15:07:00 18 /min [facility] Body height 2024-10-29 15:07:00 162.6 cm [facility] Diastolic blood pressure 2023-05-02 14:44:00 77 mm[Hg] [facility] Heart rate 2023-05-02 14:44:00 76 /min [facility] Body temperature 2023-05-02 14:44:[address] [facility] Respiratory rate 2023-05-02 14:44:00 18 /min [facility] Body height 2023-05-02 14:44:00 162.6 cm [facility] Body weight 2023-05-02 14:44:00 71.759 kg [facility] BMI 2023-05-02 14:44:00 27.15 kg/m2 [facility] Systolic blood pressure 2023-05-02 14:44:00 115 mm[Hg] [facility] Systolic blood pressure 2023-01-31 13:55:00 117 mm[Hg] [facility] Diastolic blood pressure 2023-01-31 13:55:00 79 mm[Hg] [facility] Heart rate 2023-01-31 13:55:00 73 /min [facility] Body temperature 2023-01-31 13:55:[address] [facility] Respiratory rate 2023-01-31 13:55:00 16 /min [facility] Body height 2023-01-31 13:55:00 162.6 cm [facility] Body weight 2023-01-31 13:55:00 67.132 kg [facility] BMI 2023-01-31 13:55:00 25.40 kg/m2 [facility] Procedures Procedure Date / Time Performed Performing Clinician Source POCT TEST 2024-11-18 00:00:[address] [facility] EXTERNAL PROVIDER RECORDS 2023-05-24 05:01:00 Doctor Unassigned, [place] [facility] GALV ONLY - VAGINAL PATHOGENS BY NUCLEIC ACID TESTING 2023-05-02 16:03:[address] [facility] GC & CHLAMYDIA AMPLIFIED ASSAY 2023-05-02 16:01:[address] [facility] TRICHOMONAS AMPLIFIED ASSAY 2023-05-02 16:01:[address] [facility] PAP SMEAR-LIQUID BASED-CP 2023-05-02 16:01:[address] [facility] Encounters Start Date/Time End Date/Time Encounter Type Admission Type Attending Clinicians Care Facility Care Department Encounter ID Source 2025-01-06 10:30:00 2025-01-06 10:30:00 Outpatient R IZABELAUMDIANE [facility] [id number] [facility] 2024-11-18 09:00:00 2024-11-18 09:30:00 Office Visit Diane Pruitt Susan [facility] [id number] 134 [id number] [facility] 2024-11-18 09:00:00 2024-11-18 09:00:00 Outpatient R JESENIADIANE [facility] [id number] [facility] 2024-10-30 00:00:00 2024-10-30 18:04:37 Case Management Jesenia Diane Susan [facility] [id number] [id number] [id number] [facility] 2024-10-29 13:15:00 2024-10-29 13:30:00 Engineering Production Liaison Visit Lab, Ang - Db Diane Pruitt Susan Lab, Ang - Db [facility] [id number] [id number] [id number] [id number] [facility] 2024-10-29 13:15:00 2024-10-29 13:15:00 Outpatient R ADUM DIANE PRUITT [facility] [id number] [facility] 2024-10-29 09:00:00 2024-10-29 09:23:11 Office Visit JeseniaDiane [facility] [id number] [id number] [id number] [id number] [facility] 2024-05-14 09:30:00 2024-05-14 09:30:00 Outpatient R ADUM, DIANE [facility] [id number] [facility] 2024-05-07 09:30:00 2024-05-07 09:30:00 Outpatient R ADDIANE [facility] [id number] [facility] 2023-05-24 00:00:00 2023-05-24 00:00:00 Orders Only Doctor Unassigned, [place] [facility] [id number] 350.1.13.10 [id number] [id number] [facility] 2023-05-09 00:00:00 2023-05-09 00:00:[address] [facility] 1..840.114 350.1.13.10 [id number] [id number] [facility] 2023-05-02 09:30:00 2023-05-02 10:16:46 Office Visit Adsimeon Diane Davis [facility] 1..0.114 350.1.13.10 [id number] [id number] [facility] 2023-05-02 09:30:00 2023-05-02 10:16:46 Outpatient R IZABELADIANE [facility] [id number] [facility] 2023-01-31 09:00:00 2023-01-31 09:26:11 Outpatient R ADDIANE [facility] [id number] [facility] 2023-01-31 09:00:00 2023-01-31 09:26:11 Office Visit AdDiane holley [facility] [id number] [id number] [id number] [id number] [facility] Results Test Description Test Time Test Comments Results Result Co mments Source [facility] Notes Date/Time Note Provider Source 2024-10-29 13:15:00 Images from the original note were not included. Venipuncture collection performed by clean technique on the left anticubitus. Total of 1 attempts were made. Slight pressure and a bandage/dressing were applied to the site(s). The patient experienced no complications. The following specimens were processed according to instructions and sent to [facility] laboratories per lab order on 10/29/2024 : LT BLUE SST 2 RED 1 LAV PPT DK GREEN (LiHep) DK GREEN (SodH) SKELTON DK BLUE (K2) DK BLUE (S) ACD Blood Culture NIPT/NTD [facility] 2023-05-23 08:30:13 Formatting of this n ote might be different from the original. Pt will call back to schedule appointment. T Ayl[facility] 2023-05-22 11:27:48 Formatting of this n ote might be different from the original. Called pt no answer left voicemail. Aylin [facility] 2023-05-19 19:04:51 Formatting of this n ote might be different from the original. Please notify that records show that her IUD was placed in 10/08/2017, so she may schedule an appointment for removal and reinsertion of her Mirena IUD. Please assist her in scheduling the appointment Diane Pruitt MD T [facility] 2023-05-09 14:40:02 Formatting of this n ote might be different from the original. Medical records received from [place] placed on provider desk for review and signature. Aylin [facility] 2023-05-02 09:30:00 Formatting of this n ote might be different from the original. Vaginal swab shows a bacterial vaginosis infection. Antibiotic therapy needed, pelase send flagyl 500 mg BID for 5 days. Vaginal testing for sexually transmitted infections was negative. Count includes the [facility] 2023-05-02 09:30:00 Addended by: ANGELIA MATHUR on: 05/04/2023 09:21 AM Modules accepted: Orders Count includes the [facility]
[2025-02-09] MEDS ORDERED: HYDROCODONE/APAP 5/325 MG TAB ONE (15:06)
[2025-02-09] MEDS ORDERED: ONDANSETRON 4 MG (ODT) TAB ONE (16:09)
--- NOTE | 2025-02-09 16:51 | RAD REPORT ---
EXAMINATION: Tib Fib Right CLINICAL INDICATION: Leg pain FINDINGS: No fracture seen involving the right tibia/fibula.
--- NOTE | 2025-02-09 16:52 | RAD REPORT ---
EXAM:Ankle Right 3 View CLINICAL HISTORY: Ankle pain FINDINGS: No fracture or dislocation seen.
--- NOTE | 2025-02-09 17:06 | EDPHYS ---
Physician Documentation [facility] Name: Haven Velázquez Age: 29 yrs Sex: Female : 1995 Arrival Date: 02/09/2025 Time: 14:51 Bed DX3 Private MD: ED Physician Syed Ngo HPI: 02/09 18:18 This 29 yrs old Female presents to ER via Ambulatory with complaints of Ankle Injury - ms3 right. 18:18 29-year-old female past medical history of depression anxiety presents to the emergency ms3 department for right ankle pain after her dogs ran into her last night. Patient states her pain is a 2/10 and increases to 6/10 with walking. Patient states at the time of the accident she heard a loud pop and her ankle began to swell.. 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 - Infectious Disease History:: Denies. - Social history:: Smoking status: Patient denies any tobacco usage or history of. ROS: 18:18 Constitutional: Negative for fever, and chills. Cardiovascular: Negative for chest ms3 pain, and palpitations. Respiratory: Negative for shortness of breath, cough, wheezing, and pleuritic chest pain, Abdomen/GI: Negative for abdominal pain, nausea, vomiting, diarrhea, and constipation, 18:18 MS/extremity: Positive for Right ankle pain, Exam: 18:18 Constitutional: This is a well developed, well nourished patient who is awake, alert, ms3 and in no acute distress. Cardiovascular: Regular rate and rhythm with a normal S1 and S2. No gallops, murmurs, or rubs. Normal PMI, no JVD. No pulse deficits. Respiratory: Lungs have equal breath sounds bilaterally, clear to auscultation and percussion. No rales, rhonchi or wheezes noted. No increased work of breathing, no retractions or nasal flaring. Abdomen/GI: Soft, non-tender, with normal bowel sounds. No distension or tympany. No guarding or rebound. No evidence of tenderness throughout. Skin: Warm, dry with normal turgor. Normal color with no rashes, no lesions, and no evidence of cellulitis. 18:18 Musculoskeletal/extremity: Extremities: noted in the Right ankle: pain, swelling, tenderness, Vital Signs: 15:01 BP 114 / 75; Pulse 86; Resp 16; Temp 98; Pulse Ox 100% on R/A; Weight 74.84 kg; Height hb 5 ft. 4 in. ; Pain 6/10; 17:21 BP 101 / 67; Pulse 72; Resp 16; Pulse Ox 100% ; ll1 15:01 Body Mass Index 28.32 (74.84 kg, 162.56 cm) hb 15:01 Pain Scale: Adult hb MDM: 15:09 Medical Screening Exam initiated ms3 18:18 Differential diagnosis: fracture, sprain. Data reviewed: vital signs, nurses notes, ms3 radiologic studies, and as a result, I will discharge patient. I considered the following discharge prescriptions or medication management in the emergency department Medications were administered in the Emergency Department. See MAR. Independent interpretation of the following test(s) in the Emergency Department X-Ray: My interpretation is Right ankle x-ray images reviewed by me do not reveal fracture. Counseling: I had a detailed discussion with the patient and/or guardian regarding the historical points, exam findings, and any diagnostic results supporting the discharge/admit diagnosis, radiology results, the need for outpatient follow up, to return to the emergency department if symptoms worsen or persist or if there are any questions or concerns that arise at home. Special discussion: I discussed with the patient/guardian in detail that at this point there is no indication for admission to the hospital. It is understood, however, that if the symptoms persist or worsen the patient needs to return immediately for re-evaluation. ED course: Discussed negative x-rays with patient. Patient placed in Aircast and given crutches. Patient to follow-up with primary care physician [address] Prieto in 2 to 3 days. All questions were answered. Return precautions discussed include worsening symptoms, or any other concerns. 02/09 14:55 Order name: Ankle Right 3 View XRAY; Complete Time: 17:05 ms3 02/09 15:09 Order name: Tib Fib Right XRAY; Complete Time: 17:05 ms3 02/09 16:32 Order name: Aircast Ankle Splint; Complete Time: 17:10 ms3 02/09 16:32 Order name: Crutches; Complete Time: 17:10 ms3 Administered Medications: 15:14 Drug: HYDROcodone-acetaminophen PO 5 mg-325 mg 1 tabs PO once Route: PO; hb 16:29 Follow up: Response: No adverse reaction hb 16:16 Drug: Ondansetron PO 4 mg PO once Route: PO; hb 17:10 Follow up: Response: No adverse reaction; Nausea is decreased ll1 Disposition Summary: 02/09/25 17:06 Discharge Ordered Notes: Location: Home ms3 Condition: Stable ms3 Diagnosis - Sprain of other ligament of left ankle ms3 Followup: ms3 - With: Stan Prieto MD - When: 2 - 3 days - Reason: Recheck today's complaints Discharge Instructions: - Discharge Summary Sheet ms3 - Crutch Use, Adult, Pkfs-si-[id number] ms3 - Ankle Sprain, Uxil-nx-Lonu ms3 Forms: - Work release form ms3 - Medication Reconciliation Form ms3 - Antibiotic Education ms3 - Prescription Opioid Use ms3 - Patient Portal Instructions ms3 - Leadership Thank You Letter ms3 Signatures: Dispatcher [employer] Elizabeth Napier, RN RN Fidencio Headley RN RN ll1 Syed Ngo DO DO ms3 Corrections: (The following items were deleted from the chart) 15:04 15:02 Home Meds: None; hb hb 15:04 15:02 PMHx: None; hb hb 15:10 15:10 Tib Fib Right+RAD.RAD.BRZ ordered. EDMS EDMS
--- NOTE | 2025-02-09 17:06 | ER ---
Nurse's Notes [facility] Name: Haven Velázquez Age: 29 yrs Sex: Female : 1995 Arrival Date: 02/09/2025 Time: 14:51 Bed DX3 Private MD: Diagnosis: Sprain of other ligament of left ankle Presentation: 02/09 15:01 Chief complaint: Rolled right ankle last night while playing with dogs, c/o right ankle hb and foot pain 6/10. Coronavirus screen: At this time, the client does not indicate any symptoms associated with coronavirus-19. Ebola Screen: No symptoms or risks identified at this time. Initial Sepsis Screen: Does the patient meet any 2 criteria? No. Patient's initial sepsis screen is negative. Does the patient have a suspected source of infection? No. Patient's initial sepsis screen is negative. Risk Assessment: Do you want to hurt yourself or someone else? Patient reports no desire to harm self or others. Onset of symptoms was February 08, 2025. 15:01 Method Of Arrival: Ambulatory hb 15:01 Acuity: LUPE 4 hb Triage Assessment: 15:04 General: Appears in no apparent distress. Behavior is calm, cooperative. Pain: Pain hb currently is 6 out of 10 on a pain scale. Neuro: Level of Consciousness is awake, alert, obeys commands, Oriented to person, place, time, situation. Cardiovascular: Patient's skin is warm and dry. Respiratory: Respiratory effort is even, unlabored, Respiratory pattern is regular, symmetrical. Musculoskeletal: Reports right foot and ankle pain. INTERNAL SPECIALIST: 17:13 LMP N/A - control method, Not ll1 Historical: - Allergies: 15:02 No Known Allergies; hb - Home Meds: 15:03 sertraline oral [Active]; Abilify oral [Active]; hb - PMHx: 15:03 Depression; Anxiety; hb - PSHx: 15:02 None; hb - Immunization history:: Adult Immunizations up to date. - Infectious Disease History:: Denies. - Social history:: Smoking status: Patient denies any tobacco usage or history of. Screenin:13 [facility] ED Fall Risk Assessment (Adult) History of falling in the last 3 months, ll1 including since admission No falls in past 3 months (0 pts) Confusion or Disorientation No (0 pts) Intoxicated or Sedated No (0 pts) Impaired Gait Yes (1 pt) Mobility Assist Device Used Yes (1 pt) Altered Elimination No (0 pt) Score/Fall Risk Level 0 - 2 = Low Risk Maintained a safe environment, Hourly rounding (assess needs \T\ fall precautionary measures) done. Abuse screen: Denies threats or abuse. Nutritional screening: No deficits noted. Tuberculosis screening: No symptoms or risk factors identified. Assessment: 17:12 General: Appears uncomfortable, Behavior is calm, cooperative, appropriate for age. ll1 Pain: Complains of pain in R ankle. Musculoskeletal: Circulation, motion, and sensation intact. Capillary refill < 3 seconds, Swelling present in R ankle Reports pain in R ankle. 17:22 Reassessment: No changes from previously documented assessment. Patient and/or family ll1 updated on plan of care and expected duration. Pain level reassessed. Patient is alert, oriented x 3, equal unlabored respirations, skin warm/dry/pink. Vital Signs: 15:01 BP 114 / 75; Pulse 86; Resp 16; Temp 98; Pulse Ox 100% on R/A; Weight 74.84 kg; Height hb 5 ft. 4 in. ; Pain 6/10; 17:21 BP 101 / 67; Pulse 72; Resp 16; Pulse Ox 100% ; ll1 15:01 Body Mass Index 28.32 (74.84 kg, 162.56 cm) hb 15:01 Pain Scale: Adult hb ED Course: 14:52 Patient arrived in ED. ms3 14:53 Syed Ngo DO is Attending Physician. ms3 15:02 Triage completed. hb 15:04 Arm band placed on. hb 15:31 Ankle Right 3 View XRAY In Process Unspecified. EDMS 15:31 Tib Fib Right XRAY In Process Unspecified. EDMS 17:06 Stan Prieto MD is Referral Physician. ms3 17:12 Air stirrup applied to right ankle. ll1 17:13 Patient has correct armband on for positive identification. Provided Education on: ER ll1 procedures and process. 17:13 No provider procedures requiring assistance completed. Patient did not have IV access ll1 during this emergency room visit. Administered Medications: 15:14 Drug: HYDROcodone-acetaminophen PO 5 mg-325 mg 1 tabs PO once Route: PO; hb 16:29 Follow up: Response: No adverse reaction hb 16:16 Drug: Ondansetron PO 4 mg PO once Route: PO; hb 17:10 Follow up: Response: No adverse reaction; Nausea is decreased ll1 Medication: 17:13 VIS not applicable for this client. ll1 Outcome: 17:06 Discharge ordered by . ms3 17:22 Discharged to home ambulatory, ll1 17:22 Condition: stable 17:22 Discharge instructions given to patient, Instructed on discharge instructions, follow up and referral plans. Demonstrated understanding of instructions, follow-up care, 17:22 Patient left the ED. ll1 Signatures: Dispatcher [employer] EDMS Elizabeth Ambriz RN RN hb Fidencio Headley RN RN ll1 Syed Ngo DO DO ms3 Corrections: (The following items were deleted from the chart) 15:04 15:02 Home Meds: None; hb hb 15:04 15:02 PMHx: None; hb hb 17:21 17:21 BP 067 / ???; Pulse 72bpm; Resp 16bpm; Pulse Ox 100%; ll1 ll1
[2025-02-09 17:33] VITALS: TEMP 98; O2SAT 100
[2025-02-09 17:40] VITALS: BP 101/67
== END 2025-02-09 17:22 | disposition home or self-care (01) ==
LOC: ER 14:51
DX: S93.491A Sprain of other ligament of right ankle, initial encounter (principal)
CPT/HCPCS: 73590; 73610; 99283; Q0162

== ENCOUNTER 2025-07-09 18:37 | Emergency (ER) | payer OTHER ==
--- OUTSIDE RECORDS SUMMARY | 2025-07-09 18:40 | XMS REPORT | Continuity of Care Document ---
Author Name Unknown Address [address] [place] [address] [facility] Address [address] [place] [address] Care Team Providers Care Agricultural Consultant Name Role Phone PCP, PATIENT DOES NOT HAVE A Primary Care Physic ángela Unavailable DIANE PRUITT Attending Clinician Unavailable DIANE PRUITT Attending Clinician Unavailable Diane Pruitt MD Attending Clinician [phone] Lab, Ang - Db Attending Clinician Unavailable Doctor Unassigned, [place] Attending Clinician U navailable Payers Payer Name Policy Type Policy Number Effective Date Expirati on Date Source [facility] PPO/POS [id number] 2023 00:00:00 [facility] [id number] 2022 00:00:00 Allergies, Adverse Reactions, Alerts Allergy Name Allergy Type Status Severity Reaction(s) Onset Date Inactive Date Treating Clinician Comments Source NO KNOWN ALLERGIE S Drug Class Active [facility] Social History Social Habit Start Date Stop Date Quantity Comments Source Gender identity [facility] Alcoholic beverage intake 2024-11-18 00:00:00 2024-11-18 00:00:00 Current drinker of alcohol (finding) [facility] History of Social function 2024-10-29 00:00:00 2024-10-29 00:00:00 [facility] Alcohol intake 2023-05-02 00:00:00 2023-05-02 00:00:00 Current drinker of alcohol (finding) [facility] Exposure to SARS-CoV-2 (event) 2023-01-21 00:00:00 2023-01-31 08:47:00 Not sure [facility] Tobacco use and exposure 2023-01-31 00:00:00 2023-01-31 00:00:00 Smokeless tobacco non-user [facility] Alcohol Comment 2023-01-31 00:00:00 2023-01-31 00:00:00 occasionally [facility] Sex assigned at 1995 00:00:00 1995 00:00:00 [facility] Smoking Status Start Date Stop Date Source Never smoked tobacco [facility] Medications Ordered Medication Name Filled Medication Name Start Date Stop Date Current Medication? Ordering Clinician Indication Dosage Frequency Signature (SIG) Comments Components Source ibuprofen (MOTRIN IB) tablet 200 mg 11-18 16:45: 00 11-18 15:56 :00 No [id number] 200mg 200 mg, Oral, ONCE, 1 dose, On Sun11/18/24 at 1045, Routine [facility] levonorgest reL (MIRENA) IUD 1 Device 11-18 16:45: 00 11-18 15:51 :00 No [id number] 1{devic e} 1 Device, Intrauteri ne, ONCE, 1 dose, On Sun11/18/24 at 1045, Routine [facility] ibuprofen (MOTRIN) tablet 800 mg 11-18 16:30: 00 11-18 15:47 :51 No [id number] 800mg [facility] metroNIDAZO LE 500 mg tablet 10-30 00:00: 00 Yes [id number] 500mg Take 1 tablet by mouth every 12 (twelve) hours. [facility] SERTraline 100 mg tablet 10-29 09:09: 25 Yes 100mg Take 1 tablet by mouth in the morning. [facility] cyanocobala min, vitamin B-12, (VITAMIN B12 ORAL) 10-29 09:09: 25 Yes Take by mouth. [facility] metroNIDAZO LE (FLAGYL) 500 mg tablet 8-04 00:00: 00 10-29 00:00 :00 No [id number] 500mg Take 1 tablet by mouth every 12 (twelve) hours. [facility] Vital Signs Vital Name Observation Time Observation Value Comments Rosanne villanueva Systolic blood pressure 2024-11-18 15:21:00 102 mm[Hg] [facility] Diastolic blood pressure 2024-11-18 15:21:00 71 mm[Hg] [facility] Heart rate 2024-11-18 15:21:00 80 /min [facility] Respiratory rate 2024-11-18 15:21:00 18 /min [facility] Body height 2024-11-18 15:21:00 162.6 cm [facility] Body weight 2024-11-18 15:21:00 76.204 kg [facility] BMI 2024-11-18 15:21:00 28.84 kg/m2 [facility] Body weight 2024-10-29 15:07:00 76.204 kg [facility] BMI 2024-10-29 15:07:00 28.84 kg/m2 [facility] Systolic blood pressure 2024-10-29 15:07:00 113 mm[Hg] [facility] Diastolic blood pressure 2024-10-29 15:07:00 74 mm[Hg] [facility] Heart rate 2024-10-29 15:07:00 96 /min [facility] Respiratory rate 2024-10-29 15:07:00 18 /min [facility] Body height 2024-10-29 15:07:00 162.6 cm [facility] Diastolic blood pressure 2023-05-02 14:44:00 77 mm[Hg] [facility] Heart rate 2023-05-02 14:44:00 76 /min [facility] Body temperature 2023-05-02 14:44:00 36.67 Linda [facility] Respiratory rate 2023-05-02 14:44:00 18 /min [facility] Body height 2023-05-02 14:44:00 162.6 cm [facility] Body weight 2023-05-02 14:44:00 71.759 kg [facility] BMI 2023-05-02 14:44:00 27.15 kg/m2 [facility] Systolic blood pressure 2023-05-02 14:44:00 115 mm[Hg] [facility] Systolic blood pressure 2023-01-31 13:55:00 117 mm[Hg] [facility] Diastolic blood pressure 2023-01-31 13:55:00 79 mm[Hg] [facility] Heart rate 2023-01-31 13:55:00 73 /min [facility] Body temperature 2023-01-31 13:55:00 36.67 Linda [facility] Respiratory rate 2023-01-31 13:55:00 16 /min [facility] Body height 2023-01-31 13:55:00 162.6 cm [facility] Body weight 2023-01-31 13:55:00 67.132 kg [facility] BMI 2023-01-31 13:55:00 25.40 kg/m2 [facility] Procedures Procedure Date / Time Performed Performing Clinician Source POCT TEST 2024-11-18 00:00:00 AdumDiane [facility] EXTERNAL PROVIDER RECORDS 2023-05-24 05:01:00 Doctor Unassigned, [place] [facility] GALV ONLY - VAGINAL PATHOGENS BY NUCLEIC ACID TESTING 2023-05-02 16:03:00 AdumDiane [facility] GC & CHLAMYDIA AMPLIFIED ASSAY 2023-05-02 16:01:00 AdumDiane [facility] TRICHOMONAS AMPLIFIED ASSAY 2023-05-02 16:01:00 AdumDiane [facility] PAP SMEAR-LIQUID BASED-CP 2023-05-02 16:01:00 AdumDiane [facility] Encounters Start Date/Time End Date/Time Encounter Type Admission Type Attending Clinicians Care Facility Care Department Encounter ID Source 2025-01-06 10:30:00 2025-01-06 10:30:00 Outpatient R IZABELAUMDIANE VIVIAN [facility] [id number] [facility] 2024-11-18 09:00:00 2024-11-18 09:30:00 Office Visit Diane Pruitt Susan [facility] [id number] [id number] [id number] [facility] 2024-11-18 09:00:00 2024-11-18 09:00:00 Outpatient R JESENIADIANE VIVIAN [facility] [id number] [facility] 2024-10-30 00:00:00 2024-10-30 18:04:37 Case Management Jesenia Diane Susan [facility] [id number] [id number] [id number] [id number] [facility] 2024-10-29 13:15:00 2024-10-29 13:30:00 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 Lab, Ang - Db Diane Pruitt Susan Lab, Ang - Db [facility] [id number] [id number] [id number] [id number] [facility] 2024-10-29 13:15:00 2024-10-29 13:15:00 Outpatient R ADUM DIANE PRUITT DIANE [facility] [id number] [facility] 2024-10-29 09:00:00 2024-10-29 09:23:11 Office Visit JeseniaDiane [facility] [id number] 350.1.13.10 [id number] [id number] [facility] 2024-05-14 09:30:00 2024-05-14 09:30:00 Outpatient R ADUM, DIANE ALBERTS [facility] [id number] [facility] 2024-05-07 09:30:00 2024-05-07 09:30:00 Outpatient R ADDIANE HOLLEY [facility] [id number] [facility] 2023-05-24 00:00:00 2023-05-24 00:00:00 Orders Only Doctor Unassigned, [place] [facility] [id number] 350.1.13.10 [id number] [id number] [facility] 2023-05-09 00:00:00 2023-05-09 00:00:00 Telephone AdDiane holley [facility] 1..840.114 350.1.13.10 4.2.7.2.686 [id number] [facility] 2023-05-02 09:30:00 2023-05-02 10:16:46 Office Visit Adsimeon Diane Davis [facility] 1..0.114 350.1.13.10 4.2.7.2.686 [id number] [facility] 2023-05-02 09:30:00 2023-05-02 10:16:46 Outpatient R IZABELADIANE HOLLEY [facility] [id number] [facility] 2023-01-31 09:00:00 2023-01-31 09:26:11 Outpatient R ADDIANE HOLLEY [facility] [id number] [facility] 2023-01-31 09:00:00 2023-01-31 09:26:11 Office Visit AdDiane holley [facility] [id number] 350.1.13.10 [id number] [id number] [facility] Results Test Description Test Time Test Comments Results Result Co mments Source [facility] Notes Date/Time Note Provider Source 2024-10-29 13:15:00 Images from the original note were not included. Venipuncture collection performed by clean technique on the left anticubitus. Total of 1 attempts were made. Slight pressure and a bandage/dressing were applied to the site(s). The patient experienced no complications. The following specimens were processed according to instructions and sent to [facility] laboratories per lab order on 10/29/2024 : LT BLUE SST 2 RED 1 LAV PPT DK GREEN (LiHep) DK GREEN (SodH) SKELTON DK BLUE (K2) DK BLUE (S) ACD Blood Culture NIPT/NTD [facility] 2023-05-23 08:30:13 Formatting of this n ote might be different from the original. Pt will call back to schedule appointment. T Aylin [facility] 2023-05-22 11:27:48 Formatting of this n ote might be different from the original. Called pt no answer left voicemail. Aylin [facility] 2023-05-19 19:04:51 Formatting of this n ote might be different from the original. Please notify that records show that her IUD was placed in 10/08/2017, so she may schedule an appointment for removal and reinsertion of her Mirena IUD. Please assist her in scheduling the appointment Diane Pruitt MD T [facility] 2023-05-09 14:40:02 Formatting of this n ote might be different from the original. Medical records received from [place] placed on provider desk for review and signature. Aylin [facility] 2023-05-02 09:30:00 Formatting of this n ote might be different from the original. Vaginal swab shows a bacterial vaginosis infection. Antibiotic therapy needed, pelase send flagyl 500 mg BID for 5 days. Vaginal testing for sexually transmitted infections was negative. [facility] 2023-05-02 09:30:00 Addended by: ANGELIA MATHUR on: 05/04/2023 09:21 AM Modules accepted: Orders [facility]
[2025-07-09] MEDS ORDERED: PROMETHAZINE INJ 25 MG/ML AMP ONE (18:46)
[2025-07-09] MEDS ORDERED: MORPHINE 4 MG/ML SYR ONE (18:47)
[2025-07-09] MEDS ORDERED: FAMOTIDINE 20 MG/2 ML VIAL IV ONE (18:47)
[2025-07-09] MEDS ORDERED: NA CHLORIDE 0.9% 1,000 ML ONE ×2 (18:47→23:13)
[2025-07-09 19:13] LABS: Absolute Lymphocytes (CBC) 1.4 K/uL (0.7-4.9); Hematocrit 49.6 % (36.0-45.0); Hemoglobin 16.6 g/dL (12.0-15.0); MCH 29.1 pg (27.0-35.0); MCHC 33.5 g/dL (32.0-36.0); MCV 87.0 fL (80-100); MPV 7.7 fL (7.6-11.3); Nucleated RBC Absolute Count 0.0 (0-0); Nucleated Red Blood Cells % 0.0 % (0-0); RBC Red Blood Cell Count 5.70 M/uL (3.86-4.86); White Blood Count 14.30 thou/uL (4.3-10.9)
[2025-07-09 19:45] LABS: ALT/SGPT 80.0 U/L (13-56); AST/SGOT 35.0 U/L (15-37); Albumin 3.9 g/dL (3.4-5.0); Albumin/Globulin Ratio 1.0 (1.1-1.8); Alkaline Phosphatase 79.0 U/L (45-117); Anion Gap 9.7 mEq/L (5.0-15.0); BUN Blood Urea Nitrogen 12.0 mg/dL (7-18); Globulin 4.1 g/dL (2.3-3.5); Glucose Level 113.0 mg/dL (74-106); Lipase 23.0 U/L (13-75); Potassium 3.7 mEq/L (3.5-5.1)
[2025-07-09 19:54] LABS: Blood Morphology Comment NOT SEEN (NOT SEEN); White Blood Cell Scan OK (OK)
[2025-07-09] MEDS ORDERED: ONDANSETRON 4 MG/2 ML VIAL ONE (20:40)
--- NOTE | 2025-07-09 20:47 | RAD REPORT ---
EXAMINATION: CT Abdomen Pelvis W Contrast CLINICAL INDICATION: Female, 30 years old. ABD PAIN TECHNIQUE: CT abdomen and pelvis was performed, after the administration of IV contrast, as per [facility]. Axial, sagittal and coronal reconstructions were obtained. One or more of the following dose reduction techniques were used: Automated exposure control, adjustment of the mA and k V according to patient size, and iterative reconstruction. Unless otherwise specified, incidental findings do not require dedicated imaging follow-up. COMPARISON: No prior exam. FINDINGS: LOWER CHEST: The visualized lung bases are clear. LIVER: Normal in size and contour. No focal lesion. BILIARY SYSTEM: No suspicious abnormalities. SPLEEN: Normal size. No focal lesion. PANCREAS: No mass, ductal dilation, or sally-pancreatic fluid. ADRENALS: Normal; no mass. KIDNEYS: 5 mm upper right renal pole nonobstructing calculus. Normal size and contour. No hydronephro sis. URINARY BLADDER: Unremarkable. GASTROINTESTINAL TRACT: No evidence of free air, significant intra-abdominal free fluid, bowel obstru ction or abscess. APPENDIX: Normal appendix. LYMPH NODES: No lymphadenopathy. MUSCULOSKELETAL: No acute or suspicious osseous abnormality. ADDITIONAL FINDINGS: None. IMPRESSION: 5 mm upper right renal pole nonobstructing calculus. No other acute or concerning abnormalities seen in the abdomen or pelvis.
[2025-07-09] MEDS ORDERED: PANTOPRAZOLE 40 MG INJ ONE (21:17)
[2025-07-09] MEDS ORDERED: SUCRALFATE 1 GM TABLET ONE (21:18)
--- NOTE | 2025-07-09 21:19 | ER ---
Nurse's Notes [facility] Name: Haven Velázquez Age: 30 yrs Sex: Female : 1995 Arrival Date: 07/09/2025 Time: 18:37 Bed 6 Private MD: Diagnosis: Acute gastritis with bleeding;Nausea with vomiting, unspecified Presentation: 07/09 18:37 Chief complaint: Patient states: nausea and diarrhea that began yesterday. Pt reports aa5 vomiting blood began today. Pt also reports "dark stools" today. Pt c/o epigastric pain. Pt reports she's been having increased levels of stress. 18:37 Coronavirus screen: diarrhea, vomiting. Ebola Screen: Patient denies travel to an [facility] Ebola-affected area in the 21 days before illness onset. Initial Sepsis Screen: Does the patient meet any 2 criteria? HR > 90 bpm. Does the patient have a suspected source of infection? No. Patient's initial sepsis screen is negative. Risk Assessment: Do you want to hurt yourself or someone else? Patient reports no desire to harm self or others. Onset of symptoms was July 08, 2025. 18:37 Acuity: LUPE 3 aa5 18:37 Method Of Arrival: Ambulatory aa5 DRAFTER DETAIL: 07/10 02:44 Not cc6 Historical: - Allergies: 07/09 18:47 No Known Allergies; aa5 - PMHx: 18:47 Anxiety; Depression; aa5 - PSHx: 18:47 None; aa5 - Immunization history:: Adult Immunizations up to date. - Infectious Disease History:: Denies. - Social history:: Smoking status: Patient denies any tobacco usage or history of. Screenin:40 [facility] ED Fall Risk Assessment (Adult) History of falling in the last 3 months, aa5 including since admission No falls in past 3 months (0 pts) Confusion or Disorientation No (0 pts) Intoxicated or Sedated No (0 pts) Impaired Gait No (0 pts) Mobility Assist Device Used No (0 pt) Altered Elimination No (0 pt) Score/Fall Risk Level 0 - 2 = Low Risk Oriented to surroundings, Maintained a safe environment, Educated pt \\T\\ family on fall prevention, incl call for assistance when getting out of bed, Assessed \\T\\ reinforced patient's understanding of fall precautions. Abuse screen: Denies threats or abuse. Nutritional screening: No deficits noted. Tuberculosis screening: No symptoms or risk factors identified. Assessment: 18:37 General: Appears uncomfortable, Behavior is calm, cooperative. Pain: Complains of pain aa5 in epigastric area Pain currently is 6 out of 10 on a pain scale. Quality of pain is described as sharp, Pain began 1 day ago. Is intermittent. Neuro: Level of Consciousness is awake, alert, obeys commands, Oriented to person, place, time, situation. Cardiovascular: Patient's skin is warm and dry. Respiratory: Airway is patent Respiratory effort is even, unlabored, Respiratory pattern is regular, symmetrical. GI: Abdomen is round non-distended, Bowel sounds present X 4 quads. Abd is soft in epigastric area, right upper quadrant, left upper quadrant, right lower quadrant and left lower quadrant Abdomen is tender to palpation in epigastric area, right upper quadrant, left upper quadrant, right lower quadrant and left lower quadrant Reports diarrhea, nausea, vomiting, Reports vomiting blood and having "dark stools", reports taking 2 doses of Pepto-Bismol without any relief. : No signs and/or symptoms were reported regarding the genitourinary system. EENT: No signs and/or symptoms were reported regarding the EENT system. Derm: Skin is dry, Skin is pale, Skin temperature is warm. Musculoskeletal: Range of motion: intact in all extremities. 19:00 Reassessment: Report received from MARIBEL Rowe. cc6 19:10 General: Appears in no apparent distress. uncomfortable. cc6 19:10 Pain: Complains of pain in left lower quadrant and right lower quadrant and left upper cc6 quadrant and right upper quadrant and abdomen and epigastric area Pain currently is 3 out of 10 on a pain scale. Quality of pain is described as sharp, Pain began 1 day ago. Is intermittent. Neuro: Level of Consciousness is awake, alert, obeys commands, Oriented to person, place, time, situation. Cardiovascular: Patient's skin is warm and dry. Respiratory: Airway is patent Respiratory effort is even, unlabored, Respiratory pattern is regular, symmetrical. GI: Abdomen is round non-distended, Bowel sounds present X 4 quads. Abd is soft Abdomen is tender to palpation Abdomen has rebound tenderness in left lower quadrant Reports diarrhea, nausea. : No signs and/or symptoms were reported regarding the genitourinary system. EENT: No signs and/or symptoms were reported regarding the EENT system. Derm: No signs and/or symptoms reported regarding the dermatologic system. Musculoskeletal: Range of motion: intact in all extremities. 21:06 Reassessment: Patient and/or family updated on plan of care and expected duration. Pain cc6 level reassessed. Patient is alert, oriented x 3, equal unlabored respirations, skin warm/dry/pink. 22:30 Reassessment: Patient and/or family updated on plan of care and expected duration. Pain cc6 level reassessed. Patient is alert, oriented x 3, equal unlabored respirations, skin warm/dry/pink. 23:01 Reassessment: Patient and/or family updated on plan of care and expected duration. Pain cc6 level reassessed. Patient is alert, oriented x 3, equal unlabored respirations, skin warm/dry/pink. 07/10 00:16 Reassessment: Patient and/or family updated on plan of care and expected duration. Pain cc6 level reassessed. Patient is alert, oriented x 3, equal unlabored respirations, skin warm/dry/pink. 01:00 Reassessment: Patient and/or family updated on plan of care and expected duration. Pain cc6 level reassessed. Patient is alert, oriented x 3, equal unlabored respirations, skin warm/dry/pink. 02:42 Reassessment:. cc6 Vital Signs: 07/09 18:37 BP 121 / 82; Pulse 107; Resp 19 S; Temp 98.4(O); Pulse Ox 99% on R/A; Weight 74.84 kg aa5 (R); Height 5 ft. 4 in. (R); Pain 03/10; 19:00 BP 116 / 79; Pulse 95; Resp 16; Pulse Ox 99% on R/A; cc6 20:00 BP 112 / 71; Pulse 83; Resp 16; Pulse Ox 98% on R/A; cc6 21:30 BP 102 / 67; Pulse 96; Resp 18; Pulse Ox 98% on R/A; cc6 22:30 BP 97 / 66; Pulse 93; Resp 15; Pulse Ox 95% on R/A; cc6 23:04 BP 89 / 63; Pulse 101; Resp 15; Pulse Ox 99% on R/A; cc6 07/10 00:16 BP 96 / 51; Pulse 104; Resp 16; Pulse Ox 95% on R/A; cc6 01:00 BP 92 / 54; Pulse 88; Resp 17; Pulse Ox 96% on R/A; cc6 02:42 BP 100 / 62; Pulse 110; Resp 18; Pulse Ox 97% on R/A; cc6 07/09 18:37 Body Mass Index 28.32 (74.84 kg, 162.56 cm) aa5 07/09 18:37 Pain Scale: Adult aa5 ED Course: 07/09 18:37 Patient arrived in ED. iw 18:37 Arm band placed on Patient placed in an exam room, on a stretcher. aa5 18:37 Patient has correct armband on for positive identification. Bed in low position. Call aa5 light in reach. Side rails up X 1. Pulse ox on. NIBP on. 18:39 Long Morgan PA-C is PHCP. cp 18:39 Syed Ngo DO is Attending Physician. cp 18:47 Pretty Jessica, MARIBEL is Primary Nurse. aa5 18:49 Radiology exam delayed due to lab results not completed at this time. (HCG) jc4 (BUN/Creatinine) test not completed at this time. IV insertion attempt and/or patient not having appropriate IV at this time. 18:50 Triage completed. aa5 18:54 No provider procedures requiring assistance completed. aa5 18:58 Attending Physician role handed off by Syed Ngo DO tt7 18:58 Jesse Wilburn DO is Attending Physician. tt7 19:02 Report given to MARIBEL Gale, Tyler RN and MARIBEL Langley. aa5 20:11 CT Abd/Pelvis - IV Contrast Only In Process Unspecified. EDMS 21:18 Marcial Peterson MD is Referral Physician. tt7 22:51 Marcial Peterson MD is Referral Physician. tt7 23:22 initiated with [facility]. vk 07/10 02:43 Patient transferred, IV remains in place. cc6 02:44 Provided Education on: NEED FOR TRANSFER. cc6 02:47 Second set of blood cultures drawn by ED staff. jj7 04:51 Patient was accepted to [facility] to Dr. Shankar \\[id number] accepting admin massimo boo \\T\\[id number] vk to [phone] to transport. Administered Medications: 07/09 19:04 Drug: Famotidine IVP 20 mg IVP once; dilute with 10 mL 0.9% NaCl; give over 2 minutes nh2 Route: IVP; Site: right antecubital; 07/10 01:58 Follow up: Response: No adverse reaction 6 07/09 19:04 Drug: morphine IVP or IV 4 mg IVP once over 4 mins Route: IVP; Infused Over: 4 mins; nh2 Site: right antecubital; 07/10 01:58 Follow up: Response: No adverse reaction cc6 07/09 19:04 Drug: NS 0.9% IV 1000 ml IV at 1 bolus Per protocol; to be given as a bolus over 60 nh2 minutes Route: IV; Rate: 1 bolus; Site: right antecubital; 07/10 01:58 Follow up: IV Status: Completed infusion cc6 07/09 19:04 Drug: Promethazine IM 25 mg IM once Route: IM; Site: right deltoid; nh2 07/10 01:58 Follow up: Response: No adverse reaction 6 07/09 20:47 Drug: Droperidol IVP 1.25 mg IVP once Route: IVP; Site: right antecubital; cc6 07/10 01:59 Follow up: Response: No adverse reaction 6 07/09 20:47 Drug: Ondansetron IVP 4 mg IVP once; over 2 minutes Route: IVP; Site: right antecubital;cc6 07/10 01:59 Follow up: Response: No adverse reaction 6 07/09 21:24 Drug: Pantoprazole IVP 40 mg IVP once Route: IVP; Site: right antecubital; 8 07/10 01:59 Follow up: Response: No adverse reaction cc6 07/09 21:24 Drug: Sucralfate PO 1 grams PO once Route: PO; bm8 07/10 01:58 Follow up: Response: No adverse reaction cc6 00:10 Drug: NS 0.9% IV 1000 ml IV at 1000 ml once; to be given as a bolus over 60 minutes cc6 Route: IV; Rate: 1000 ml; Site: left antecubital; 01:57 Follow up: IV Status: Completed infusion cc6 00:54 Drug: Piperacillin-Tazobactam IVPB 4.5 grams IVPB once over 60 mins; (mix in 100 mL NS) cc6 Route: IVPB; Infused Over: 60 mins; Site: left antecubital; 01:57 Follow up: Response: No adverse reaction; IV Status: Completed infusion cc6 01:27 Drug: NS 0.9% IV 1000 ml IV at 1000 ml once; to be given as a bolus over 60 minutes cc6 Route: IV; Rate: 1000 ml; Site: left antecubital; 02:40 Follow up: Response: No adverse reaction; IV Status: Completed infusion cc6 02:40 Drug: NS 0.9% IV 1000 ml IV at 1000 ml once; to be given as a bolus over 60 minutes cc6 Route: IV; Rate: 1000 ml; Site: left antecubital; 02:43 Follow up: IV Status: Infusion continued upon transfer cc6 Medication: 07/09 18:54 VIS not applicable for this client. aa5 Outcome: 21:19 Discharge ordered by MD. tt7 22:51 Discharge ordered by MD. tt7 23:17 ER care complete, transfer ordered by MD. tt7 07/10 02:43 Transferred by ground EMS to [facility], Transfer form completed. cc6 X-rays sent w/ patient. Condition: stable Instructed on the need for transfer, Demonstrated understanding of instructions, 02:44 Patient left the ED. cc6 Signatures: Dispatcher [employer] EDMS Suellen Hutson RN RN iw Pretty Jessica RN RN aa5 Long Morgan, PA-C PA-C Syed Mohan, DO DO ms3 Jennie Coker RN RN [email or web address] Diane Sheffield Brad, RN RN bm8 Red Smith jc4 Shahla Levine RN RN cc6 Emile Rosa Jr RN MARIBEL nh2 Jesse Wilburn, DO DO tt7
--- NOTE | 2025-07-09 21:19 | EDPHYS ---
Physician Documentation [facility] Name: Haven Velázquez Age: 30 yrs Sex: Female : 1995 Arrival Date: 07/09/2025 Time: 18:37 Bed 6 Private MD: ED Physician Jesse Wilburn HPI: 07/09 18:53 This 30 yrs old Female presents to ER via Ambulatory with complaints of ms3 Nausea/Vomiting/Diarrhea, Abdominal Pain. 18:53 30-year-old female with past medical history of depression, anxiety presents to the [facility] emergency department for nausea, vomiting, diarrhea. Patient states her emesis is coffee-ground emesis. Patient states her abdominal pain is rated 6/10. She denies any alleviating or inciting factors. 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 - Infectious Disease History:: Denies. - Social history:: Smoking status: Patient denies any tobacco usage or history of. ROS: 18:53 Constitutional: Negative for fever, and chills. Cardiovascular: Negative for chest ms3 pain, and palpitations. Respiratory: Negative for shortness of breath, cough, wheezing, and pleuritic chest pain, 18:53 Skin: Negative for injury, rash, and discoloration, 18:53 Abdomen/GI: Positive for abdominal pain, nausea, vomiting, and diarrhea, Exam: 18:53 Constitutional: This is a well developed, well nourished patient who is awake, alert, ms3 and in no acute distress. Cardiovascular: Regular rate and rhythm with a normal S1 and S2. No gallops, murmurs, or rubs. Normal PMI, no JVD. No pulse deficits. Respiratory: Lungs have equal breath sounds bilaterally, clear to auscultation and percussion. No rales, rhonchi or wheezes noted. No increased work of breathing, no retractions or nasal flaring. Abdomen/GI: Soft, non-tender, with normal bowel sounds. No distension or tympany. No guarding or rebound. No evidence of tenderness throughout. MS/ Extremity: Pulses equal, no cyanosis. Neurovascular intact. Full, normal range of motion. Vital Signs: 18:37 BP 121 / 82; Pulse 107; Resp 19 S; Temp 98.4(O); Pulse Ox 99% on R/A; Weight 74.84 kg aa5 (R); Height 5 ft. 4 in. (R); Pain 6/10; 19:00 BP 116 / 79; Pulse 95; Resp 16; Pulse Ox 99% on R/A; cc6 20:00 BP 112 / 71; Pulse 83; Resp 16; Pulse Ox 98% on R/A; cc6 21:30 BP 102 / 67; Pulse 96; Resp 18; Pulse Ox 98% on R/A; cc6 22:30 BP 97 / 66; Pulse 93; Resp 15; Pulse Ox 95% on R/A; cc6 23:04 BP 89 / 63; Pulse 101; Resp 15; Pulse Ox 99% on R/A; cc6 07/10 00:16 BP 96 / 51; Pulse 104; Resp 16; Pulse Ox 95% on R/A; cc6 01:00 BP 92 / 54; Pulse 88; Resp 17; Pulse Ox 96% on R/A; cc6 02:42 BP 100 / 62; Pulse 110; Resp 18; Pulse Ox 97% on R/A; cc6 07/09 18:37 Body Mass Index 28.32 (74.84 kg, 162.56 cm) aa5 07/09 18:37 Pain Scale: Adult aa5 MDM: 10 18:40 Medical Screening Exam initiated cp 18:53 Differential diagnosis: Nonspecific abd pain, gastritis, PUD. ms3 20:35 Data reviewed: vital signs, nurses notes, lab test result(s), radiologic studies. tt7 20:44 ED course: I took over care of this patient at shift change at [address] Ngo, this tt7 is a 30-year-old female who has been having abdominal pain along with nausea/vomiting, concern for a possible gastrointestinal hemorrhage, laboratory studies have been ordered as well as CT imaging of the abdomen/pelvis. Patient has been treated with parenteral opioids and antiemetics. Her laboratory studies are overall reassuring, she has a mild leukocytosis of 14,000 which could be reactive from vomiting, her hemoglobin is 16.6, chemistry is normal, lipase within normal limits. 20:51 ED course: CT imaging does not show any acute abnormalities. tt7 07/10 02:07 Counseling: I had a detailed discussion with the patient and/or guardian regarding the tt7 historical points, exam findings, and any diagnostic results supporting the discharge/admit diagnosis, lab results, radiology results, the need to transfer to another facility. ED course: I treated the patient with various antiemetics to control her nausea/vomiting, she was able to tolerate oral intake and I attempted to discharge the patient home with prescription antiemetics and close GI outpatient follow-up, prior to being discharged the patient vomited again, at that point we had risk/benefit discussion, and patient wanted to come to the hospital for observation, I spoke with hospitalist Moo Haider regarding observation but he declined as we do not have an on-call belt lacer, I updated the patient and she was willing to proceed with transfer to [facility] where they have on-call gastroenterology if necessary, I spoke with hospitalist Dr. Rowe regarding the patient's clinical presentation, vital signs, laboratory studies, CT imaging results, and interventions performed, she accepts the patient for transfer. 07/09 18:44 Order name: CBC with Diff; Complete Time: 20:07 ms3 07/09 18:44 Order name: CMP; Complete Time: 20:07 ms3 07/09 18:44 Order name: Lipase; Complete Time: 20:07 ms3 07/09 19:17 Order name: CBC Smear Scan; Complete Time: 20:07 EDMS 07/09 23:16 Order name: PT-INR; Complete Time: 23:57 tt7 07/09 23:16 Order name: Ptt, Activated; Complete Time: 23:57 tt7 07/09 23:16 Order name: Lactate w/ 2H reflex if indic.; Complete Time: 23:57 tt7 07/10 00:26 Order name: Test, Serum; Complete Time: 01:28 tt7 07/10 00:27 Order name: Blood Culture Adult (2) tt7 07/09 18:44 Order name: CT Abd/Pelvis - IV Contrast Only; Complete Time: 20:49 ms3 07/09 18:44 Order name: IV Saline Lock; Complete Time: 18:45 ms3 07/09 18:44 Order name: Labs collected and sent; Complete Time: 18:45 ms3 Administered Medications: 07/09 19:04 Drug: Famotidine IVP 20 mg IVP once; dilute with 10 mL 0.9% NaCl; give over 2 minutes nh2 Route: IVP; Site: right antecubital; 07/10 01:58 Follow up: Response: No adverse reaction [facility] 07/09 19:04 Drug: morphine IVP or IV 4 mg IVP once over 4 mins Route: IVP; Infused Over: 4 mins; nh2 Site: right antecubital; 07/10 01:58 Follow up: Response: No adverse reaction [facility] 07/09 19:04 Drug: NS 0.9% IV 1000 ml IV at 1 bolus Per protocol; to be given as a bolus over 60 nh2 minutes Route: IV; Rate: 1 bolus; Site: right antecubital; 07/10 01:58 Follow up: IV Status: Completed infusion cc6 07/09 19:04 Drug: Promethazine IM 25 mg IM once Route: IM; Site: right deltoid; nh2 07/10 01:58 Follow up: Response: No adverse reaction [facility] 07/09 20:47 Drug: Droperidol IVP 1.25 mg IVP once Route: IVP; Site: right antecubital; 6 07/10 01:59 Follow up: Response: No adverse reaction [facility] 07/09 20:47 Drug: Ondansetron IVP 4 mg IVP once; over 2 minutes Route: IVP; Site: right antecubital;cc6 07/10 01:59 Follow up: Response: No adverse reaction [facility] 07/09 21:24 Drug: Pantoprazole IVP 40 mg IVP once Route: IVP; Site: right antecubital; 8 07/10 01:59 Follow up: Response: No adverse reaction [facility] 07/09 21:24 Drug: Sucralfate PO 1 grams PO once Route: PO; 8 07/10 01:58 Follow up: Response: No adverse reaction [facility] 00:10 Drug: NS 0.9% IV 1000 ml IV at 1000 ml once; to be given as a bolus over 60 minutes cc6 Route: IV; Rate: 1000 ml; Site: left antecubital; 01:57 Follow up: IV Status: Completed infusion cc6 00:54 Drug: Piperacillin-Tazobactam IVPB 4.5 grams IVPB once over 60 mins; (mix in 100 mL NS) cc6 Route: IVPB; Infused Over: 60 mins; Site: left antecubital; 01:57 Follow up: Response: No adverse reaction; IV Status: Completed infusion cc6 01:27 Drug: NS 0.9% IV 1000 ml IV at 1000 ml once; to be given as a bolus over 60 minutes cc6 Route: IV; Rate: 1000 ml; Site: left antecubital; 02:40 Follow up: Response: No adverse reaction; IV Status: Completed infusion cc6 02:40 Drug: NS 0.9% IV 1000 ml IV at 1000 ml once; to be given as a bolus over 60 minutes cc6 Route: IV; Rate: 1000 ml; Site: left antecubital; 02:43 Follow up: IV Status: Infusion continued upon transfer cc6 Disposition: 02:25 Co-signature as Attending Physician, Jesse Wilburn DO. tt7 Disposition Summary: 07/09/25 23:17 Transfer Ordered Notes: Transfer Location: [facility] tt7 Reason: Specialty tt7 Condition: Fair(07/09/25 23:17) tt7 Problem: new(07/09/25 23:17) tt7 Symptoms: are unchanged(07/09/25 23:17) tt7 Accepting Physician: Dr. Crawford(07/10/25 02:44) cc6 Diagnosis - Acute gastritis with bleeding(07/09/25 23:17) tt7 - Nausea with vomiting, unspecified(07/09/25 23:17) tt7 Forms: - Medication Reconciliation Form tt7 - SBAR form tt7 Signatures: Dispatcher [employer] EDMS Pretty Jessica, RN RN aa5 Long Morgan PA-Eber PASyed Peters cp, DO DO ms3 Tyler Ferraro RN RN bm8 Shahla Levine RN RN cc6 Emile Rosa Jr, RN RN nh2 Jesse Wilburn DO DO tt7 Corrections: (The following items were deleted from the chart) 07/09 20:48 20:44 ED course: I took over care of this patient at shift change at [address] kobe Ngo, this is a 30-year-old female who has been having abdominal pain along with nausea/vomiting, concern for a possible gastrointestinal hemorrhage, laboratory studies have been ordered as well as CT imaging of the abdomen/pelvis. Patient has been treated with parenteral opioids and antiemetics. tt7 21:58 21:19 Home tt7 tt7 21:58 21:19 new tt7 tt7 21:58 21:19 have improved tt7 tt7 21:58 21:19 Stable tt7 tt7 21:58 21:19 Abdominal pain, Generalized tt7 tt7 21:58 21:19 Acute gastritis with bleeding tt7 tt7 21:58 21:19 Nausea with vomiting, unspecified tt7 tt7 23:16 22:51 Home tt7 tt7 23:16 22:51 new tt7 tt7 23:16 22:51 have improved tt7 tt7 23:16 22:51 Stable tt7 tt7 23:16 22:51 Acute gastritis with bleeding tt7 tt7 23:16 22:51 Nausea with vomiting, unspecified tt7 tt7 07/10 00:27 00:27 TEST, SERUM+SC.LAB.BRZ ordered. EDMS EDMS 02:07 07/09 23:17 Dr. bullock tt7 07/10 02:44 02:07 Dr. Ty bullock cc6
[2025-07-09 23:46] LABS: PT Prothrombin Time 12.9 SECONDS (10-13.0); PTT, Activated Partial Thromb 26.9 SECONDS (27.2-37.4); Protime INR 1.15
[2025-07-10] MEDS ORDERED: PIPERACIL/TAZO 4.5 GM VIAL IV ONE (00:44)
[2025-07-10] MEDS ORDERED: NA CHLORIDE 0.9% 100 ML ONE (00:45)
[2025-07-10] MEDS ORDERED: NA CHLORIDE 0.9% 1,000 ML ONE ×2 (00:45→02:35)
[2025-07-10 03:04] VITALS: TEMP 98.4
[2025-07-10 03:14] VITALS: BP 100/62; O2SAT 97
== END 2025-07-10 02:44 | disposition short-term general hospital (02) ==
LOC: ER 18:37
DX: K29.01 Acute gastritis with bleeding (principal)
CPT/HCPCS: 96365; 96361; 87040 ×2; 85025; 36415; 84703; 85610; 83605; 85730; 83690; 80053; 74177; 96375; 96372; 99285; J2550; J2470; J2405; J1790; J7030 ×4